=== PATIENT | female | born 1950 | race Caucasian/White ===

== ENCOUNTER → 2017-02-24 | Outpatient (CLI) | payer MEDICARE, BC ==
[2014-03-15 17:02] VITALS: BP 176/80
[~2017-02-24] MED LIST: ALLO300T PO; ALPR0.254 PO; AMIT25TA PO; AMIT50TA PO; ASPI-630 PO; ASPI325T8 PO; CALC-102 PO; CYCL5TAB PO; DOCU100C28 PO; FOLI1TAB16 PO; FURO-68 PO; HYDR-2758 PO; HYDR4TAB PO; LEXAPRO10 MG PO; MAGN400T3 PO; MULT-208 PO; OXYB5TAB7 PO; POTA20TA12 PO; THIA100T8 PO
--- NOTE | 2017-02-24 15:16 | RAD ---
Renal ultrasound 02/24/2017 Indication: Persistent proteinuria Comparison study: None Findings: Ultrasound evaluation of the kidneys was performed. Static images are submitted to PACS. The right kidney is poorly visualized measuring approximately between 9 and 10 cm in length. There is a small cyst in the superior pole the right kidney measuring 1 cm in diameter. No hydronephrosis or definitive nephrolithiasis is identified on the right. Diffuse atherosclerotic vascular irregularity seen throughout the visualized aorta without evidence of aneurysmal dilatation. The bladder is predominantly decompressed. Left kidney is also somewhat poorly visualized measuring approximately 9 cm in length. No hydronephrosis or definitive nephrolithiasis is seen left. No focal renal lesion is seen on the left. Both kidneys demonstrate mild diffusely increased renal echogenicity and cortical thinning. Impression: 1. 1 cm cyst, superior pole right kidney 2. Increased renal echogenicity and mild renal cortical thinning. The appearance is nonspecific, but most commonly reflects chronic medical renal disease
[2017-02-24 15:53] LABS: ALBUMIN 3.2 g/dL (3.4-5.0); CALCIUM 9.2 mg/dL (8.5-10.1); CREATININE 1.2 mg/dL (0.6-1.0); GFR 44.7
[2017-02-24 16:01] LABS: BASO # 0.1 x10^3/uL (0.0-0.2); BASO % 2 % (0-3); EOS # 0.1 x10^3/uL (0.0-0.7); EOS % 1 % (0-3); HEMATOCRIT 35.5 % (36.0-47.0); LYMPH # 1.9 x10^3/uL (1.0-4.8); LYMPH % 37 % (24-48); MEAN CORPUSCULAR HEMOGLOBIN 34 pg (25-35); MEAN CORPUSCULAR HGB CONC 34 g/dL (31-37); MEAN CORPUSCULAR VOLUME 102 fL (79-100); MONO # 0.3 x10^3/uL (0.0-1.1); MONO % 5 % (0-9); NEUT # 2.8 x10^3uL (1.8-7.7); NEUT % 55 % (31-73); PLATELET COUNT 150 x10^3/uL (140-400); RED CELL DISTRIBUTION WIDTH 14.8 % (11.5-14.5); WHITE BLOOD COUNT 5.1 x10^3/uL (4.0-11.0)
[2017-02-25 05:10] LABS: CREATININE PTH 1.24 mg/dL (0.57-1.00); PTH INTACT 95 pg/mL (15-65)
== END | disposition home or self-care (01) ==
LOC: US 14:04
PROVIDERS: ATTEND Internal Medicine Nephrology
DX: I12.9 Hypertensive chronic kidney disease with stage 1 through stage 4 chronic kidney disease, or unspecified chronic kidney disease (principal); N18.3 Chronic kidney disease, stage 3 (moderate); R80.1 Persistent proteinuria, unspecified; N28.1 Cyst of kidney, acquired; N32.89 Other specified disorders of bladder
CPT/HCPCS: 36415; 76770; 80069; 83970; 85025

== ENCOUNTER 2017-07-07 15:00 | Inpatient (IN) | payer MEDICARE, BC ==
[~2017-07-07] VITALS: Ht 154.9 cm; Wt 53.8 kg
--- NOTE | 2017-07-07 15:17 | PHYS DOC ---
Past History Past Medical History: Alcoholism, Anxiety, Depression, Seizure Past Surgical History: Hysterectomy Smoking: Non-smoker Alcohol Use: None Drug Use: None Adult General Chief Complaint Chief Complaint: SEIZURE HPI HPI 66-year-old female patient brought in by EMS because of seizures. Patient states she has seizure at age of 12 and was on Dilantin for 2 years and patient was stopped at age of 14. Patient states he was at auto shop today and felt dizzy and storehouse clerk helped her to sit down. Patient does not remember anything more and witness states she had 3 episodes of grand mal seizure that last about 1 minute and was one or 2 minutes apart without loss of urine and bowel or injury. Patient has history of alcoholism but did not take any narcotics since May 10 denies using drugs and taking Ultram. Review of Systems Review of Systems Constitutional: Denies fever or chills [] Eyes: Denies change in visual acuity, redness, or eye pain [] HENT: Denies nasal congestion or sore throat [] Respiratory: Denies cough or shortness of breath [] Cardiovascular: No additional information not addressed in HPI [] GI: Denies abdominal pain, nausea, vomiting, bloody stools or diarrhea [] : Denies dysuria or hematuria [] Musculoskeletal: Denies back pain or joint pain [] Integument: Denies rash or skin lesions [] Neurologic: Denies headache, focal weakness or sensory changes [] Endocrine: Denies polyuria or polydipsia [] All other systems were reviewed and found to be within normal limits, except as documented in this note. Allergies Allergies Allergies Coded Allergies Type Severity Reaction Last Updated Verified No Known Drug Allergies 12/11/13 No Physical Exam Physical Exam Constitutional: Well developed, well nourished, no acute distress, non-toxic appearance. [] HENT: Normocephalic, atraumatic, bilateral external ears normal, oropharynx moist, no oral exudates, nose normal. [] Eyes: PERRLA, EOMI, conjunctiva normal, no discharge. [] Neck: Normal range of motion, no tenderness, supple, no stridor. [] Cardiovascular:Heart rate regular rhythm, no murmur [] Lungs & Thorax: Bilateral breath sounds clear to auscultation [] Abdomen: Bowel sounds normal, soft, no tenderness, no masses, no pulsatile masses. [] Skin: Warm, dry, no erythema, no rash. [] Back: No tenderness, no CVA tenderness. [] Extremities: No tenderness, no cyanosis, no clubbing, ROM intact, no edema. [] Neurologic: Alert and oriented X 3, normal motor function, normal sensory function, no focal deficits noted. [] Psychologic: Affect normal, judgement normal, mood normal. [] EKG EKG [EKG at 1540 showed normal sinus rhythm at rate of 71, no acute distress and T wave abnormality] Radiology/Procedures Radiology/Procedures [] [place] [address] IMAGING REPORT Signed PATIENT: DIAN RAMOS ACCOUNT: [id number] : 1950 LOCATION: ER AGE: 66 SEX: F EXAM STATUS: REG ER ORD. PHYSICIAN: TRACY LIMON MD REASON: seizure PROCEDURE: CT HEAD WO CONTRAST CT head without contrast History: Seizure. Comparison: 03/15/2014. Procedure: Axial images are obtained of the head from the skull base through the vertex without IV contrast. Findings: Mild age-related cerebral atrophic changes. Mild bilateral periventricular white matter hypodensities likely chronic small vessel ischemic disease. The ventricles and sulci are normal for the patient's age. No mass-effect, intracranial mass, midline shift, hemorrhage or obvious acute infarction is identified. Basilar cisterns are patent. Bone windows demonstrate no significant calvarial abnormality. The visualized paranasal sinuses appear clear. Impression: 1. No acute intracranial process. PQRS Compliance Statement: One or more of the following individualized dose reduction techniques were utilized for this examination: 1. Automated exposure control 2. Adjustment of the mA and/or kV according to patient size 3. Use of iterative reconstruction technique DICTATED AND SIGNED BY: MILAGROS DELACRUZ MD DATE: 07/07/17 1548 CC: CHARLES PATE MD; TRACY LIMON MD ~ Course & Med Decision Making Course & Med Decision Making Pertinent Labs and Imaging studies reviewed. (See chart for details) Admission of patient in ER showed 66-year-old female patient with remote history of seizures with 2 episodes of seizure today. Patient had unremarkable physical exam and labs and CT head except for increasing chronic renal insufficiency and anemia. Dr. Hernandez was consulted at 1625 and recommended to admit patient for observation of status epilepticus. Plan to start Keppra loading dose. Dr. Gibbs informed at 1640 and agreed with plan of care and admission. UA and UDS is pending. Dragon Disclaimer Dragon Disclaimer This electronic medical record was generated, in whole or in part, using a voice recognition dictation system. Departure Departure: Impression: Primary Impression: Status epilepticus Additional Impressions: Anemia Renal insufficiency Dehydration Disposition: 09 ADMITTED INPATIENT (At 1649) Admitting Physician: Jaki Dodge Condition: IMPROVED Referrals: CHARLES PATE MD (PCP) Problem Qualifiers TRACY LIMON MD Jul 07, 2017 15:17
[2017-07-07 15:52] LABS: BASO % 1 % (0-3); EOS # 0.2 x10^3/uL (0.0-0.7); EOS % 4 % (0-3); HEMATOCRIT 30.1 % (36.0-47.0); HEMOGLOBIN 10.3 g/dL (12.0-15.5); LYMPH # 1.8 x10^3/uL (1.0-4.8); LYMPH % 32 % (24-48); MEAN CORPUSCULAR HEMOGLOBIN 34 pg (25-35); MEAN CORPUSCULAR HGB CONC 34 g/dL (31-37); MEAN CORPUSCULAR VOLUME 100 fL (79-100); MONO # 0.4 x10^3/uL (0.0-1.1); MONO % 6 % (0-9); NEUT # 3.2 x10^3uL (1.8-7.7); NEUT % 57 % (31-73); PLATELET COUNT 207 x10^3/uL (140-400); RED BLOOD COUNT 3.01 x10^6/uL (3.50-5.40); RED CELL DISTRIBUTION WIDTH 13.8 % (11.5-14.5); WHITE BLOOD COUNT 5.7 x10^3/uL (4.0-11.0)
--- NOTE | 2017-07-07 15:52 | RAD ---
CT head without contrast History: Seizure. Comparison: 03/15/2014. Procedure: Axial images are obtained of the head from the skull base through the vertex without IV contrast. Findings: Mild age-related cerebral atrophic changes. Mild bilateral periventricular white matter hypodensities likely chronic small vessel ischemic disease. The ventricles and sulci are normal for the patient's age. No mass-effect, intracranial mass, midline shift, hemorrhage or obvious acute infarction is identified. Basilar cisterns are patent. Bone windows demonstrate no significant calvarial abnormality. The visualized paranasal sinuses appear clear. Impression: 1. No acute intracranial process. PQRS Compliance Statement: One or more of the following individualized dose reduction techniques were utilized for this examination: 1. Automated exposure control 2. Adjustment of the mA and/or kV according to patient size 3. Use of iterative reconstruction technique
[2017-07-07 16:05] LABS: ALBUMIN 3.3 g/dL (3.4-5.0); ALBUMIN/GLOBULIN RATIO 0.9 (1.0-1.7); CALCIUM 9.2 mg/dL (8.5-10.1); GFR 24.8; POTASSIUM 4.4 mmol/L (3.5-5.1); TOTAL BILIRUBIN 0.2 mg/dL (0.2-1.0); TOTAL PROTEIN 6.8 g/dL (6.4-8.2)
--- NOTE | 2017-07-07 16:49 | EKG ---
[address] [address] Test Date: 2017-07-07 Test Time: 15:14:16 Pat Name: DIAN RAMOS Department: Room: Gender: F Vehicle And Equipment [employer]er: : 1950 Requested By: TRACY LIMON Order Number: [id number] Reading MD: Julian Hurtado Measurements Intervals [place] Rate: 71 P: 31 SD: 150 QRS: 13 QRSD: 74 T: 41 QT: 422 QTc: 464 Interpretive Statements SINUS RHYTHM NORMAL ECG Electronically Signed On 07-22-2017 17:47:05 CDT by Julian Hurtado
[2017-07-07 16:57] LABS: BARBITURATES NEG (NEG); BENZODIAZEPINES NEG (NEG); CANNABINOIDS POS (NEG); COCAINE NEG (NEG); METHADONE NEG (NEG); OPIATES NEG (NEG); PHENCYCLIDINE NEG (NEG)
[2017-07-07 16:58] LABS: AMPHETAMINE/METHAMPHETAMINE NEG (NEG)
[2017-07-07] MEDS ORDERED: IV NORMAL SALINE 1,000ML 1,000 ML IV ONE (17:00)
[2017-07-07 17:51] LABS: BILIRUBIN,URINE NEG (NEG); CLARITY,URINE HAZY; COLOR,URINE YELLOW; GLUCOSE,URINE NEG (NEG); NITRITE,URINE POS (NEG); UROBILINOGEN,URINE 0.2 mg/dL (0.2 mg/dL)
[2017-07-07 17:52] LABS: BACTERIA,URINE MOD /HPF (0-FEW)
[2017-07-07 19:01] VITALS: BP 169/83
[2017-07-07] MEDS ORDERED: CHOL4POW11 PO (20:43)
[2017-07-07] MEDS ORDERED: LOSA25TA4 PO (20:43)
[2017-07-07] MEDS ORDERED: OLAN2.5T3 PO (20:43)
[2017-07-07] MEDS ORDERED: FURO20TA3 PO (20:43)
[2017-07-07] MEDS ORDERED: CYCL-331 PO (20:43)
[2017-07-07] MEDS ORDERED: OXYB15TA4 PO (20:43)
[2017-07-07] MEDS ORDERED: OLANZapine 2.5 MG TABLET PO PRN (20:45)
[2017-07-07] MEDS ORDERED: CYCLOBENZAPRINE 10 MG TABLET. PO PRN (20:45)
[2017-07-07] MEDS ORDERED: cefTRIAXone IV Push 1 GM VIAL. IVP SCH (21:00)
[2017-07-07] MEDS: levETIRAcetam 500 MG TABLET PO SCH (22:18)
[2017-07-07] MEDS: LACTOBACILLUS RHAMNOSUS GG 1 CAPSULE. PO SCH (22:18)
[2017-07-07] MEDS: OXYBUTYNIN CHLORIDE 5 MG TABLET PO SCH (22:18)
[2017-07-07] MEDS: IV NORMAL SALINE 1,000ML 1,000 ML IV SCH (22:25)
[2017-07-07 22:27] VITALS: BP 113/54
[2017-07-08] MEDS: IV NORMAL SALINE 1,000ML 1,000 ML IV SCH ×2 (04:45→12:45)
[2017-07-08 05:29] VITALS: BP 142/78
[2017-07-08] MEDS: levETIRAcetam 500 MG TABLET PO SCH (08:13)
[2017-07-08] MEDS: OXYBUTYNIN CHLORIDE 5 MG TABLET PO SCH (08:14)
[2017-07-08] MEDS: LACTOBACILLUS RHAMNOSUS GG 1 CAPSULE. PO SCH (08:14)
[2017-07-08] MEDS ORDERED: CHOLESTYRAMINE/ASPARTAME 4 GM PACKET PO SCH (09:00)
[2017-07-08] MEDS ORDERED: LOSARTAN 25 MG TABLET. PO SCH (09:00)
[2017-07-08 09:29] LABS: ALBUMIN 3.1 g/dL (3.4-5.0); CREATININE 1.5 mg/dL (0.6-1.0); GFR 34.5; MAGNESIUM 1.9 mg/dL (1.8-2.4); POTASSIUM 4.5 mmol/L (3.5-5.1); TOTAL BILIRUBIN 0.2 mg/dL (0.2-1.0); TOTAL PROTEIN 6.3 g/dL (6.4-8.2)
[2017-07-08 10:03] VITALS: BP 158/83
[2017-07-08 14:26] VITALS: BP 130/64
[2017-07-08] MEDS ORDERED: LEVE500T56 PO (15:08)
--- NOTE | 2017-07-08 16:49 | HP ---
ADMIT DATE: 07/07/2017 HISTORY OF PRESENT ILLNESS: The patient is a 66-year-old female patient who basically was brought by emergency medical service because of seizures. The patient stated that she had a seizure at age of 12, was on Dilantin for 2 years and the patient was stopped at the age of 14, has never had any seizures since then. She stated that she was in OT shop today, felt dizzy and the in store marketing representative helped her to sit down. Apparently, the patient does not remember anything and a witness stated that she has 3 episodes of grand-mal seizures, each one lasted about 1 minute and 1 or 2 minutes apart without loss of urine, bowel or injury. The patient has history of alcoholism, but did not take any narcotics or alcohol since May. Denied using any drugs or taking Ultram, she was basically investigated in the Emergency Room and she was noted to be dehydrated with elevated BUN and creatinine and her urinalysis was unremarkable; however, her toxic screen was positive for cannabis. Her imaging studies showed that the CT scan was mild age-related cerebral atrophic changes with mild bilateral periventricular white matter hypodensities, likely chronic small vessel ischemic changes. The ventricle sulci are normal for her age. No mass effect, intracranial mass, midline shift, hemorrhage or obvious acute infarction identified. Basilar cisterns are patent. Bone windows demonstrate no significant calvarial abnormality. Visualized paranasal sinuses appear clear. The patient was admitted and upon consulting Dr. Hernandez, she was started on Keppra 1000 mg loading dose and continued on Keppra 500 mg twice a day and was continued on all her other medications. PAST MEDICAL HISTORY: Significant for hypertension, chronic kidney disease stage 3 and questionable hypothyroidism. PAST SURGICAL HISTORY: Significant for total abdominal hysterectomy, bilateral salpingo-oophorectomy. ALLERGIES: CODEINE. MEDICATIONS: She is currently on following medications: She is on cholestyramine 4 grams daily, Flexeril 10 mg 3 times a day, furosemide 20 mg twice a day, losartan potassium 25 mg once a day, olanzapine 2.5 mg at bedtime and Ditropan-XL ____ mg p.o. b.i.d. FAMILY HISTORY: She has 2 brothers, one older and has osteoarthritis of his hip and one younger brother is healthy. Her sister has bilateral hip replacement. Her father at age of 76 because of congestive heart failure, diabetes and her mother at age of 81 because of end-stage renal disease and was on dialysis, she had multiple myeloma as underlying condition. SOCIAL HISTORY: She was and she has no kids. She smokes marijuana almost daily basis. She used to drink alcohol heavily, quit in May. 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 REVIEW OF SYSTEMS: The patient denied any blurring of vision, cataract, glaucoma or macular degeneration. Denied any earache, tinnitus or sensorineural deafness. Denied any nosebleeds, stuffy nose or postnasal drip. Denied any sore throat, sore tongue, toothache, hoarseness of voice or difficulty swallowing. Denied any nausea, vomiting, diarrhea or constipation, any hematemesis, melena or hematochezia. Denied dysuria, frequency or hematuria. Denied chest pain, shortness of breath, orthopnea, paroxysmal nocturnal dyspnea. PHYSICAL EXAMINATION: GENERAL: On arrival to the Emergency Room, she looked well and was clearly in no apparent respiratory distress, pale, but no jaundice, cyanosis, or thyromegaly. No jugular venous distension. No limb edema. VITAL SIGNS: Her heart rate was 69, blood pressure 125/54, temperature was 97.9, respiratory rate was 18 and oxygen saturation was 99%. HEENT: Showed normocephalic, atraumatic. NECK: Supple. HEART: Showed normal first and second heart sounds. No gallop, rub or murmur. CHEST: Clear to auscultation. No crepitation or rhonchi. ABDOMEN: Distended, soft, nontender. No guarding or rigidity. No organomegaly. All hernial orifices intact. Bowel sounds normal. NEUROLOGIC: She was alert, oriented x 3, normal motor and sensory function. No focal deficit. Her affect was normal with normal judgment. Mood was normal. LABORATORY DATA: While in the Emergency Room, she has had lab work done, which showed that her white cell count was 5700, hemoglobin 10, hematocrit 30, MCV 100, and platelet count of 207,000. Her chemistry showed a serum sodium 143, potassium 4.4, chloride 107, bicarbonate 28, anion gap of 8, BUN 47, creatinine 2, estimated GFR was 25 mL per minute. Her glucose was 119, calcium 9.2. Total bilirubin, AST, ALT, alkaline phosphatase were normal. Total protein 6.8, albumin 3.3. Urinalysis was unremarkable. Toxic screen was positive for cannabinoids and her CT scan of the head showed no acute intracranial process. The patient was seen by Dr. Hernandez and was given a loading dose of Keppra and was continued on Keppra 500 mg twice a day. Continue all her other medications. We will obviously await evaluation by Dr. Hernandez and repeat her labs tomorrow and decide on further management accordingly. ESPERANZA OBREGON MD DR: RANJANA/jesika JOB#: [id number] / [id number]
--- NOTE | 2017-07-08 21:53 | DS ---
DATE OF DISCHARGE: 07/08/2017 HISTORY OF PRESENT ILLNESS: The patient is a 66-year-old female patient, who came in with 3 episodes of what has been described as tonic-clonic seizures, although each one lasted about 1 minute and were 1-2 minutes apart without any urine or bowel incontinence, no tongue biting. The patient apparently quit drinking alcohol in 05/2017 and does not use any narcotics since May and denied using any drugs or taking Ultram. She does smoke a joint of marijuana almost daily, according to her. In any case, she was simply extensively investigated. She was found to be mildly hydrated. Apparently, she is known to have stage 3 chronic kidney disease. She has also anemia and dehydration. She was loaded with Keppra and was given Keppra 500 mg twice a day as she remained stable a decision was made to discharge her home to follow with Dr. Hernandez as an outpatient. We did contact her primary care physician's office and apparently her most recent creatinine was 1.5 on 07/05/2017. PHYSICAL EXAMINATION: GENERAL: When I examined her today, she looked well and was clearly in no apparent respiratory distress, pale, but no jaundice, cyanosis, or thyromegaly. No jugular venous distension. No limb edema. VITAL SIGNS: Her heart rate was 68, blood pressure was 169/83, temperature was 98.1, respiratory rate was 20, and oxygen saturation was 98%. HEAD, EYES, EARS, NOSE AND THROAT: Normocephalic, atraumatic. NECK: Was supple. HEART: Showed normal first and second heart sounds. No gallop, rub or murmur. CHEST: Clear to auscultation. No crepitation or rhonchi. ABDOMEN: Distended, soft, nontender. No guarding or rigidity. No organomegaly. Hernial orifice is intact. Bowel sounds normal. NEUROLOGIC: She is awake, alert, responding appropriately. Cranial nerves are intact. EXTREMITIES: She moves extremities without difficulty. She ambulates without assistance or assistive devices. Her intake over the last 24 hours was 2800, no output was recorded. LABORATORY DATA: Her lab work this morning showed a serum sodium 143, potassium 4.5, chloride 110, bicarbonate 23, anion gap of 10, BUN 43, creatinine 1.5, estimated GFR was 34 mL per minute. Her glucose was 110, calcium 9, magnesium was 1.9. Total bilirubin, AST, ALT, alkaline phosphatase were normal. Her total protein was 6.3, albumin 3.1. DISCHARGE MEDICATIONS: The patient will be discharged home to continue on Keppra 500 mg twice a day, cholestyramine 4 grams daily for irritable bowel syndrome, Flexeril 10 mg 3 times a day for muscle spasm, furosemide 20 mg twice a day, losartan potassium 25 mg daily, and olanzapine for Zyprexa 2.5 mg at bedtime as needed for insomnia, and oxybutynin chloride for Ditropan for overactive bladder 50 mg twice a day. FINAL DISCHARGE DIAGNOSES: 1. A new onset seizure. 2. Chronic kidney disease. 3. Anemia. 4. Dehydration. 5. Hypertension. 6. Insomnia. 7. Overactive bladder. ESPERANZA OBREGON MD DR: RANJANA/jesika JOB#: [id number] / [id number]
--- NOTE | 2017-07-08 23:45 | CONS ---
DATE OF CONSULTATION: 07/08/2017 NEUROLOGIC CONSULTATION CHIEF COMPLAINT: Breakthrough new onset of seizure. HISTORY OF PRESENT ILLNESS: This is a 66-year-old female who was admitted through Emergency Room last night after she presented with possible 3 episodes described as seizure-like activities. The patient stated she had first seizure at age of 12 of unknown etiology. She was placed on Dilantin for 2 years and she has not had any seizures since until yesterday when she was in auto shop. She felt a sudden onset of dizzy, so she had to sit down and then she started having 3 seizure-like activity, each one lasted 1-2 minutes approximately. 911 was activated and they transferred the patient to [facility] Emergency Room. The patient did not recall the event and she did not have any other symptoms prior to the seizure. On arrival to the Emergency Room, the patient was alert and oriented, but she did not recall those seizures. She did not have any bowel or bladder incontinence. The patient denies any other medical or neurological complaints. She denies any recent head injuries or fall. She quit drinking a few months ago. The patient used to be an alcoholic. However, she has been smoking marijuana every day for many years. PAST MEDICAL HISTORY: Significant for alcohol abuse, she does have some intermittent urinary incontinence, history of hypertension, congestive heart failure, urinary tract infections, gout, arthritis, sleep difficulties, and depression. PAST SURGICAL HISTORY: Significant for hysterectomy, right foot surgery x 2. SOCIAL HISTORY: The patient lives independently. She drives. She denies smoking cigarettes, but she smokes marijuana on a daily basis and she quit alcohol several months ago. FAMILY HISTORY: Her mother had renal failure. Her father had myocardial infarction and diabetes mellitus. CURRENT HOME MEDICATIONS: Cholestyramine 4 mg daily, losartan 25 mg daily, oxybutynin 5 mg t.i.d., olanzapine, Zyprexa 2.5 mg at bedtime p.r.n., and Flexeril 10 mg t.i.d. ALLERGIES: CODEINE. REVIEW OF SYSTEMS: Ten-point review of systems was performed as mentioned above in history of present illness. PHYSICAL EXAMINATION: GENERAL: Well-developed, well-nourished white female, not in acute distress. VITAL SIGNS: Blood pressure 142/70, respiratory rate 20, pulse is 76 and regular, temperature 97.9, oxygen saturation is 97% on room air. HEENT: Normocephalic, atraumatic, otherwise unremarkable. NECK: Supple. Negative for carotid bruit, lymphadenopathy, or thyromegaly. LUNGS: Clear to A and P. CARDIOVASCULAR: Regular rate rhythm. Normal S1, S2. There is no S3, S4, murmurs. ABDOMEN: Soft. Bowel sounds positive. EXTREMITIES: Negative for cyanosis, clubbing, pitting edema. NEUROLOGICAL EXAMINATION: Mental Status: The patient is alert and oriented x 3. Speech is fluent. There is no language dysfunction. Memory is intact. Judgment and abstracting thinking are normal. The patient denies hallucination or delusion. Cranial nerves: Visual valero are full. The pupils are reactive to light and accommodation. The extraocular movements are intact. There is no nystagmus. There is no facial motor or sensory deficit. Deep tendon reflexes were symmetric and active without pathology responses. Gait and coordinations are normal. LABORATORY DATA: CBC revealed blood cells of 5700, hemoglobin 10.3, hematocrit 30.1, platelet count 207,000. Chemistry revealed sodium of 143, potassium 4.4, chloride 107, CO2 28, BUN 47, creatinine 2, and glucose 119. Calcium is 9.2. Liver enzymes are normal. Troponin level less than 0.017. Urinalysis, positive large urine leukocyte esterase and positive for nitrite, moderate bacteria. Urine drug screen is positive for marijuana. A head CT scan revealed no acute intracranial process. IMPRESSION: 1. Breakthrough seizure. The patient was loaded with Keppra intravenously and continued on maintenance dose of 500 mg twice daily. The patient has not had any recurrent seizure since. 2. Multiple medical problems include renal disease, hypertension, depression and sleep disorders, anemia of chronic type, urinary tract infections, chronic marijuana use. RECOMMENDATIONS: 1. Continue with current managements for urinary tract infections and hydration. 2. We will check CPK. 3. We will arrange for continue with Keppra 500 mg twice daily. 4. We will arrange for an EEG as outpatient. 5. No driving until the EEG is done. M Live MCGARRY MD DR: LARRY/jesika JOB#: [id number] / [id number]
== END 2017-07-08 15:30 | disposition home or self-care (01) | DRG 100 ==
LOC: ER 15:00 → 1 SOUTH 16:45 → OBSVTOIN 18:46
PROVIDERS: ADMIT Family Medicine; ATTEND Family Medicine
DX: G40.901 Epilepsy, unspecified, not intractable, with status epilepticus (principal); N17.0 Acute kidney failure with tubular necrosis; I13.0 Hypertensive heart and chronic kidney disease with heart failure and stage 1 through stage 4 chronic kidney disease, or unspecified chronic kidney disease; N39.0 Urinary tract infection, site not specified; I50.9 Heart failure, unspecified; N18.3 Chronic kidney disease, stage 3 (moderate); D64.9 Anemia, unspecified; E86.0 Dehydration; F32.9 Major depressive disorder, single episode, unspecified; F41.9 Anxiety disorder, unspecified; F10.21 Alcohol dependence, in remission; F12.90 Cannabis use, unspecified, uncomplicated; M19.90 Unspecified osteoarthritis, unspecified site; G47.00 Insomnia, unspecified; N32.81 Overactive bladder; M10.9 Gout, unspecified; Z90.710 Acquired absence of both cervix and uterus; Z90.722 Acquired absence of ovaries, bilateral; Z90.79 Acquired absence of other genital organ(s); Z88.5 Allergy status to narcotic agent; Z79.899 Other long term (current) drug therapy; Z82.61 Family history of arthritis; Z83.3 Family history of diabetes mellitus; Z82.49 Family history of ischemic heart disease and other diseases of the circulatory system; Z80.7 Family history of other malignant neoplasms of lymphoid, hematopoietic and related tissues
CPT/HCPCS: 36415; 70450; 80053; 80307; 81001; 82550; 83735; 84484; 85025; 87086; 87186; 93005; 96361; 96374; G0378; G0379; J0696; J1953; 99285-25; G0479; J7030

== ENCOUNTER 2017-09-17 10:35 | Emergency (ER) | payer MEDICARE, BC ==
[~2017-09-17] VITALS: Ht 154.9 cm; Wt 55.8 kg
[~2017-09-17 10:35] MED LIST changes: +CHOL4POW11 PO; +CYCL-331 PO; +FURO20TA3 PO; +LEVE500T56 PO; +LOSA25TA4 PO; +OLAN2.5T3 PO; +OXYB15TA4 PO
--- NOTE | 2017-09-17 11:06 | RAD ---
EXAM: Right foot and ankle, 3 views. HISTORY: Fall. Swelling and bruising. COMPARISON: None. FINDINGS: Frontal, lateral and oblique views of the right foot and ankle are obtained. There is evidence of prior right hallux valgus and bunionectomy surgery, with associated fixation screw within the distal first metatarsal. There is a tiny plantar spur. There is a tiny ossicle along the lateral hindfoot and a single projection, possibly due to a developmental ossicle or tiny avulsion fracture fragment. There is diffuse ankle and foot soft tissue swelling. The ankle mortise is intact. IMPRESSION: 1. Diffuse ankle and foot soft tissue swelling. 2. Evidence of prior right hallux valgus and bunionectomy surgery. 3. Tiny plantar spur. 4. Tiny ossicle along the lateral hindfoot and a single projection, possibly developmental or tiny avulsion fracture fragment of uncertain chronicity. Correlate for point tenderness in this location. Electronically signed by: Araceli Cid MD (09/17/2017 11:03 AM) [id number]
--- NOTE | 2017-09-17 11:33 | PHYS DOC ---
Past History Past Medical History: Alcoholism, Depression, Hypertension, Hypothyroid, Migraines, Renal Disease, Seizure Past Surgical History: Hysterectomy Smoking: Non-smoker Alcohol Use: None Drug Use: None Adult General Chief Complaint Chief Complaint: MECHANICAL FALL HPI HPI 66-year-old female presents with right ankle pain. The patient was standing up from her chair and tripped over her own feet. She rolled her right ankle inward and fell onto the floor. This occurred 2 days ago. Since that time, the patient has had significant increase in bruising and swelling of the right foot and right ankle. He denies any other injuries or areas of pain. She presents today she is concerned that the foot may be broken. She has been able to walk on her leg, but it is painful. The patient was recently started on baby aspirin daily. Patient denies fever, chills headache, fevers, shortness of breath, chest pain. Review of Systems Review of Systems Constitutional: Denies fever or chills [] Eyes: Denies change in visual acuity, redness, or eye pain [] HENT: Denies nasal congestion or sore throat [] Respiratory: Denies cough or shortness of breath [] Cardiovascular: No additional information not addressed in HPI [] GI: Denies abdominal pain, nausea, vomiting, bloody stools or diarrhea [] : Denies dysuria or hematuria [] Musculoskeletal: Denies back pain or joint pain [] Integument: Denies rash or skin lesions [] Neurologic: Denies headache, focal weakness or sensory changes [] Endocrine: Denies polyuria or polydipsia [] All other systems were reviewed and found to be within normal limits, except as documented in this note. Allergies Allergies Allergies Coded Allergies Type Severity Reaction Last Updated Verified codeine Allergy Unknown 09/17/17 Yes Physical Exam Physical Exam Constitutional: Well developed, well nourished, no acute distress, non-toxic appearance. [] HENT: Normocephalic, atraumatic, bilateral external ears normal, oropharynx moist, no oral exudates, nose normal. [] Eyes: PERRLA, EOMI, conjunctiva normal, no discharge. [] Neck: Normal range of motion, no tenderness, supple, no stridor. [] Cardiovascular:Heart rate regular rhythm, no murmur [] Lungs & Thorax: Bilateral breath sounds clear to auscultation [] Abdomen: Bowel sounds normal, soft, no tenderness, no masses, no pulsatile masses. [] Skin: Warm, dry, no erythema, no rash. [] Back: No tenderness, no CVA tenderness. [] Extremities: No tenderness, no cyanosis, no clubbing, ROM intact, no edema. [] Neurologic: Alert and oriented X 3, normal motor function, normal sensory function, no focal deficits noted. [] Psychologic: Affect normal, judgement normal, mood normal. [] Current Patient Data Vital Signs Vital Signs Date Time Temp Pulse Resp B/P (MAP) Pulse Ox O2 Delivery O2 Flow Rate FiO2 09/17/17 10:49 98.1 56 16 97 Room Air EKG EKG [] Radiology/Procedures Radiology/Procedures []EXAM: Right foot and ankle, 3 views. HISTORY: Fall. Swelling and bruising. COMPARISON: None. FINDINGS: Frontal, lateral and oblique views of the right foot and ankle are obtained. There is evidence of prior right hallux valgus and bunionectomy surgery, with associated fixation screw within the distal first metatarsal. There is a tiny plantar spur. There is a tiny ossicle along the lateral hindfoot and a single projection, possibly due to a developmental ossicle or tiny avulsion fracture fragment. There is diffuse ankle and foot soft tissue swelling. The ankle mortise is intact. IMPRESSION: 1. Diffuse ankle and foot soft tissue swelling. 2. Evidence of prior right hallux valgus and bunionectomy surgery. 3. Tiny plantar spur. 4. Tiny ossicle along the lateral hindfoot and a single projection, possibly developmental or tiny avulsion fracture fragment of uncertain chronicity. Correlate for point tenderness in this location. Electronically signed by: Araceli Cid MD (09/17/2017 11:03 AM) [id number] Course & Med Decision Making Course & Med Decision Making Pertinent Labs and Imaging studies reviewed. (See chart for details) Patient's x-ray does not show definitive fracture. Please see official read in this note. By my review of the imaging, I could not see a fracture. The mentioned ossification appears to be old. I believe the patient has a moderate to severe sprain of the anterior talofibular ligament. We will wrap it with an Leif wrap to help with swelling. We will also provide an Aircast splint. She will follow up with her PCP for further management. [] Dragon Disclaimer Dragon Disclaimer This electronic medical record was generated, in whole or in part, using a voice recognition dictation system. Departure Departure: Disposition: 01 HOME, SELF-CARE Condition: STABLE Referrals: ARACELI PATE MD (PCP) RICHARD MAGANA DO September 17, 2017 11:33
== END 2017-09-17 12:05 | disposition home or self-care (01) ==
LOC: ER 10:35
DX: S93.491A Sprain of other ligament of right ankle, initial encounter (principal); E03.9 Hypothyroidism, unspecified; F10.20 Alcohol dependence, uncomplicated; F32.9 Major depressive disorder, single episode, unspecified; I10 Essential (primary) hypertension; M20.11 Hallux valgus (acquired), right foot; Z79.82 Long term (current) use of aspirin; Z88.5 Allergy status to narcotic agent; W01.0XXA Fall on same level from slipping, tripping and stumbling without subsequent striking against object, initial encounter; Y93.89 Activity, other specified; Y92.89 Other specified places as the place of occurrence of the external cause; Y99.8 Other external cause status
CPT/HCPCS: 73610; 73630; 99284; L4350

== ENCOUNTER 2017-12-08 21:39 | Emergency (ER) | payer MEDICARE, BC ==
[~2017-12-08] VITALS: Ht 154.9 cm; Wt 60.3 kg
[2017-12-08] MEDS ORDERED: LORazepam 2 MG/ML VIAL IV ONE (22:00)
[2017-12-08 22:47] VITALS: BP 196/114
[2017-12-08 23:12] LABS: BASO # 0.1 x10^3/uL (0.0-0.2); BASO % 1 % (0-3); EOS % 0 % (0-3); HEMATOCRIT 36.3 % (36.0-47.0); HEMOGLOBIN 12.6 g/dL (12.0-15.5); LYMPH # 0.9 x10^3/uL (1.0-4.8); LYMPH % 10 % (24-48); MEAN CORPUSCULAR HEMOGLOBIN 32 pg (25-35); MEAN CORPUSCULAR HGB CONC 35 g/dL (31-37); MEAN CORPUSCULAR VOLUME 92 fL (79-100); MONO # 0.4 x10^3/uL (0.0-1.1); MONO % 5 % (0-9); NEUT # 7.2 x10^3uL (1.8-7.7); NEUT % 84 % (31-73); PLATELET COUNT 228 x10^3/uL (140-400); RED BLOOD COUNT 3.97 x10^6/uL (3.50-5.40); RED CELL DISTRIBUTION WIDTH 13.8 % (11.5-14.5); WHITE BLOOD COUNT 8.5 x10^3/uL (4.0-11.0)
[2017-12-08 23:26] LABS: ALBUMIN 3.7 g/dL (3.4-5.0); ALBUMIN/GLOBULIN RATIO 1.1 (1.0-1.7); CALCIUM 9.4 mg/dL (8.5-10.1); CREATININE 1.8 mg/dL (0.6-1.0); GFR 27.9; POTASSIUM 3.9 mmol/L (3.5-5.1); TOTAL PROTEIN 7.1 g/dL (6.4-8.2)
[2017-12-09] MEDS ORDERED: ONDA4TAB10 SL (00:20)
--- NOTE | 2017-12-09 00:20 | PHYS DOC ---
Past History Past Medical History: Alcoholism, Seizure Past Surgical History: Hysterectomy Smoking: Non-smoker Alcohol Use: Sober Drug Use: Marijuana Adult General Chief Complaint Chief Complaint: ANXIETY/PANIC ATTACK HPI HPI Patient is a [67] year old [female] who brought in by EMS because of anxiety. Patient called 911 because of blood pressure of 220s and stated she was going to because of high blood pressure. Patient stated a physician. All of her anxiety medication and blood pressure medication and she had dry heaves yesterday and checked her blood pressure was 220 and became anxious and called 911. She is very anxious and unable to give history and screaming. Review of Systems Review of Systems Unable to obtain because of anxiety Current Medications Current Medications Current Medications Medications (Trade) Dose Ordered Sig/Onur Start Time Stop Time Status Last Admin Dose Admin Lorazepam (Ativan) 1 mg 1X ONCE 12/08/17 22:00 12/08/17 22:01 DC 12/08/17 22:05 1 MG Allergies Allergies Allergies Coded Allergies Type Severity Reaction Last Updated Verified codeine Allergy Unknown 09/17/17 Yes Physical Exam Physical Exam Constitutional: Agitated and anxious,, moderate distress, non-toxic appearance. [] HENT: Normocephalic, atraumatic Eyes: PERRLA, EOMI, conjunctiva normal, no discharge. [] Neck: Normal range of motion, no tenderness, supple, no stridor. [] Cardiovascular:Heart rate regular rhythm, no murmur [] Lungs & Thorax: Bilateral breath sounds clear to auscultation [] Abdomen: Bowel sounds normal, soft, no tenderness, no masses, no pulsatile masses. [] Skin: Warm, dry, no erythema, no rash. [] Back: No tenderness, no CVA tenderness. [] Extremities: No tenderness, no cyanosis, no clubbing, ROM intact, no edema. [] Neurologic: Alert and oriented X 3, normal motor function, normal sensory function, no focal deficits noted. [] Psychologic: Affect anxious, mood normal. [] Current Patient Data Vital Signs Vital Signs Date Time Temp Pulse Resp B/P (MAP) Pulse Ox O2 Delivery O2 Flow Rate FiO2 12/08/17 21:39 97.8 56 40 100 Room Air Lab Results Laboratory Tests Test 12/08/17 22:45 White Blood Count 8.5 x10^3/uL (4.0-11.0) Red Blood Count 3.97 x10^6/uL (3.50-5.40) Hemoglobin 12.6 g/dL (12.0-15.5) Hematocrit 36.3 % (36.0-47.0) Mean Corpuscular Volume 92 fL (79-100) Mean Corpuscular Hemoglobin 32 pg (25-35) Mean Corpuscular Hemoglobin Concent 35 g/dL (31-37) Red Cell Distribution Width 13.8 % (11.5-14.5) Platelet Count 228 x10^3/uL (140-400) Neutrophils (%) (Auto) 84 % (31-73) H Lymphocytes (%) (Auto) 10 % (24-48) L Monocytes (%) (Auto) 5 % (0-9) Eosinophils (%) (Auto) 0 % (0-3) Basophils (%) (Auto) 1 % (0-3) Neutrophils # (Auto) 7.2 x10^3uL (1.8-7.7) Lymphocytes # (Auto) 0.9 x10^3/uL (1.0-4.8) L Monocytes # (Auto) 0.4 x10^3/uL (0.0-1.1) Eosinophils # (Auto) 0.0 x10^3/uL (0.0-0.7) Basophils # (Auto) 0.1 x10^3/uL (0.0-0.2) Sodium Level 137 mmol/L (136-145) Potassium Level 3.9 mmol/L (3.5-5.1) Chloride Level 101 mmol/L (98-107) Carbon Dioxide Level 16 mmol/L (21-32) L Anion Gap 20 (6-14) H Blood Urea Nitrogen 31 mg/dL (7-20) H Creatinine 1.8 mg/dL (0.6-1.0) H Estimated GFR (Cockcroft-Gault) 27.9 BUN/Creatinine Ratio 17 (6-20) Glucose Level 130 mg/dL (70-99) H Calcium Level 9.4 mg/dL (8.5-10.1) Total Bilirubin 1.0 mg/dL (0.2-1.0) Aspartate Amino Transferase (AST) 18 U/L (15-37) Alanine Aminotransferase (ALT) 26 U/L (14-59) Alkaline Phosphatase 82 U/L (46-116) Total Protein 7.1 g/dL (6.4-8.2) Albumin 3.7 g/dL (3.4-5.0) Albumin/Globulin Ratio 1.1 (1.0-1.7) EKG EKG [] Radiology/Procedures Radiology/Procedures [] Course & Med Decision Making Course & Med Decision Making Pertinent Labs reviewed. (See chart for details) Evaluation of patient in ER showed 67-year-old female patient brought in by EMS because of anxiety. Patient screaming and asking for anxiety medication at arrival to ER. Patient treated with Ativan and gradually her condition improved and became, and cooperative and answering the question appropriately and denied suicidal and homicidal ideation. Patient states she doesn't have an anxiety and blood pressure medication. Patient instructed to follow up with her primary care physician regarding her medication. Blood pressure was 130s in ER. Dragon Disclaimer Dragon Disclaimer This electronic medical record was generated, in whole or in part, using a voice recognition dictation system. Departure Departure: Impression: Primary Impression: Anxiety attack Additional Impressions: Chronic renal insufficiency Uncontrolled hypertension Nausea Disposition: HOME, SELF-CARE (at 0017) Condition: IMPROVED Referrals: CHARLES PATE MD (PCP) Patient Instructions: Anxiety and Panic Attacks, Hypertension, Nausea, Adult Additional Instructions: Drink plenty of liquids Follow-up with your primary care physician in 1-2 days for blood pressure and anxiety medication Return to ER if not getting better Scripts Ondansetron (ZOFRAN ODT) 4 Mg Tab.rapdis 1 TAB SL Q8HRS, #15 TAB Prov: TRACY LIMON MD 12/09/17 Problem Qualifiers TRACY LIMON MD Dec 09, 2017 00:20
== END 2017-12-09 00:48 | disposition home or self-care (01) ==
LOC: ER 21:39
DX: F41.9 Anxiety disorder, unspecified (principal); I12.9 Hypertensive chronic kidney disease with stage 1 through stage 4 chronic kidney disease, or unspecified chronic kidney disease; N18.9 Chronic kidney disease, unspecified; R11.0 Nausea; F10.20 Alcohol dependence, uncomplicated; Z88.5 Allergy status to narcotic agent
CPT/HCPCS: 36415; 80053; 85025; 96374; 99284; G0480; J2060

== ENCOUNTER 2018-01-08 21:57 | Observation (INO) | payer MEDICARE, BC ==
[~2018-01-08] VITALS: Ht 152.4 cm; Wt 61.0 kg
[~2018-01-08 21:57] MED LIST changes: -LOSA25TA4 PO; +LOSA25TA5 PO; +ONDA4TAB10 SL
--- NOTE | 2018-01-08 22:17 | PHYS DOC ---
Past History Past Medical History: Alcoholism, Hypertension, Seizure Past Surgical History: Hysterectomy Smoking: Quit Greater Than 1 Year Alcohol Use: Sober Drug Use: Marijuana Adult General Chief Complaint Chief Complaint: ALTERED MENTAL STATUS HPI HPI 67-year-old female presents via EMS after patient reportedly had pulled over on side of road due to near syncopal episode. Patient reports she started feeling lightheaded while shopping just prior. Patient denies trauma. Reports she ended up urinating on herself . Denies alcohol use. Patient does report use of marijuana which was last used yesterday but denies any other illicit drug use. Denies headache. Denies chest pain. Patient reports she feels "weak all over ". Denies fever or chills. EMS reported patient's initial blood sugar 77 for which they gave her some dextrose. Patient appears slightly confused during evaluation and continues repeating that she had urinated on herself . Review of Systems Review of Systems Constitutional: Denies fever or chills [] Eyes: Denies change in visual acuity, redness, or eye pain [] HENT: Denies nasal congestion or sore throat [] Respiratory: Denies cough or shortness of breath [] Cardiovascular: Denies chest pain or palpitations GI: Denies abdominal pain, nausea, vomiting, or diarrhea [] : Denies dysuria or hematuria [] Musculoskeletal: Denies back pain or joint pain [] Integument: Denies rash or skin lesions [] Neurologic: Denies headache or sensory changes; reports generalized weakness; reports near syncope Complete systems were reviewed and found to be within normal limits, except as documented in this note. Allergies Allergies Allergies Coded Allergies Type Severity Reaction Last Updated Verified codeine Allergy Unknown 09/17/17 Yes Physical Exam Physical Exam Constitutional: Well developed, well nourished, no acute distress, non-toxic appearance. [] HENT: Normocephalic, atraumatic, oropharynx right] Eyes: PERRL, EOMI, conjunctiva normal, no discharge, no nystagmus Neck: Normal range of motion, no tenderness, supple, no meningeal signs Cardiovascular: Heart rate regular rhythm, no murmur [] Lungs & Thorax: Bilateral breath sounds clear to auscultation [] Abdomen: Soft, no tenderness Skin: Warm, dry, no erythema, no rash. [] Extremities: No tenderness, no cyanosis, trace edema to BLE Neurologic: Alert and oriented X 3, patient confused and repeating statements, normal sensory function. Unable to lift BUE or BLE, patient able to move fingers and toes on each limb. Initial NIHSS upon arrival would be 12 due to score of 3 to each extremity for no movement against gravity Current Patient Data Lab Results Laboratory Tests Test 01/08/18 22:05 Glucose (Fingerstick) 112 mg/dL (70-99) H EKG EKG @2210 on 01/08/18: NSR at 67bpm, NO ST elevation Radiology/Procedures Radiology/Procedures PROCEDURE: CT HEAD WO CONTRAST CT Head W/O Contrast: History: Altered mental status, weakness Comparison: July 07, 2017 Axial images were obtained without contrast. There is marked diffuse atrophy. There is no mass effect, extraaxial fluid collections or hydrocephalus. There is no focal loss of baez-white matter distinction to suggest acute ischemia, i.e. stroke. Impression: No acute findings. PQRS Compliance Statement: One or more of the following individualized dose reduction techniques were utilized for this examination: 1. Automated exposure control 2. Adjustment of the mA and/or kV according to patient size 3. Use of iterative reconstruction technique PROCEDURE: PORTABLE CHEST 1V AP chest x-ray HISTORY: Altered mental status and weakness. FINDINGS: Heart size is normal. Mediastinum is normal. No pneumothorax, pulmonary opacities or pleural effusions. Mild lobulation or eventration of the right diaphragm is noted. Thoracic spine scoliosis. IMPRESSION: No acute process. Course & Med Decision Making Course & Med Decision Making Pertinent Labs and Imaging studies reviewed. (See chart for details) Patient presents via EMS with report of near syncopal episode with associated generalized weakness. Upon arrival patient alert and oriented 3 but continually repeating herself that she "wet herself." Patient unable to lift bilateral upper extremities as well as bilateral lower extremities. Patient denies any sensation loss. Patient is able to move fingers and toes. CT head without acute process. Chest x-ray clear. Labs obtained and posted to chart. Troponin within normal limits. UA with signs of yeast cystitis. Diflucan provided. Patient with interval improvement of symptoms. NIHSS 0 prior to admission. Patient requiring admission for further evaluation and treatment. Discussed with Dr. Armstrong (hospitalist) who is in agreement with observation admission. Discussed findings and plan with patient and family, who acknowledge understanding and agreement. Dragon Disclaimer Dragon Disclaimer This electronic medical record was generated, in whole or in part, using a voice recognition dictation system. Departure Departure: Impression: Primary Impression: Near syncope Additional Impressions: Generalized weakness Yeast cystitis Disposition: ADMITTED INPATIENT Admitting Physician: Ada Armstrong Condition: IMPROVED Referrals: CHARLES PATE MD (PCP) Problem Qualifiers ANDREW ACOSTA DO Jan 08, 2018 22:17
[2018-01-08 22:32] LABS: BASO % 0 % (0-3); EOS # 0.2 x10^3/uL (0.0-0.7); EOS % 2 % (0-3); HEMATOCRIT 33.1 % (36.0-47.0); HEMOGLOBIN 11.5 g/dL (12.0-15.5); LYMPH # 2.6 x10^3/uL (1.0-4.8); LYMPH % 27 % (24-48); MEAN CORPUSCULAR HEMOGLOBIN 32 pg (25-35); MEAN CORPUSCULAR HGB CONC 35 g/dL (31-37); MEAN CORPUSCULAR VOLUME 91 fL (79-100); MONO # 0.7 x10^3/uL (0.0-1.1); MONO % 8 % (0-9); NEUT % 62 % (31-73); PLATELET COUNT 252 x10^3/uL (140-400); RED BLOOD COUNT 3.65 x10^6/uL (3.50-5.40); RED CELL DISTRIBUTION WIDTH 13.6 % (11.5-14.5); WHITE BLOOD COUNT 9.6 x10^3/uL (4.0-11.0)
[2018-01-08 22:52] LABS: BARBITURATES NEG (NEG); BENZODIAZEPINES NEG (NEG); CANNABINOIDS POS (NEG); COCAINE NEG (NEG); METHADONE NEG (NEG); OPIATES NEG (NEG); PHENCYCLIDINE NEG (NEG)
[2018-01-08 22:54] LABS: BILIRUBIN,URINE NEG (NEG); CLARITY,URINE HAZY; COLOR,URINE YELLOW; GLUCOSE,URINE NEG (NEG)
[2018-01-08 22:55] LABS: AMORPHOUS SEDIMENT,UR PRESENT /HPF; BACTERIA,URINE MANY /HPF (0-FEW); NITRITE,URINE NEG (NEG); SQUAMOUS EPITHELIAL CELL,UR OCC /LPF; UROBILINOGEN,URINE 0.2 mg/dL (0.2 mg/dL); YEAST,URINE PRESENT /HPF
--- NOTE | 2018-01-08 22:57 | RAD ---
AP chest x-ray HISTORY: Altered mental status and weakness. FINDINGS: Heart size is normal. Mediastinum is normal. No pneumothorax, pulmonary opacities or pleural effusions. Mild lobulation or eventration of the right diaphragm is noted. Thoracic spine scoliosis. IMPRESSION: No acute process. Electronically signed by: Slim Fang MD (01/08/2018 10:54 PM) [id number]
--- NOTE | 2018-01-08 22:58 | RAD ---
CT Head W/O Contrast: History: Altered mental status, weakness Comparison: July 07, 2017 Axial images were obtained without contrast. There is marked diffuse atrophy. There is no mass effect, extraaxial fluid collections or hydrocephalus. There is no focal loss of baez-white matter distinction to suggest acute ischemia, i.e. stroke. Impression: No acute findings. RS Compliance Statement: One or more of the following individualized dose reduction techniques were utilized for this examination: 1. Automated exposure control 2. Adjustment of the mA and/or kV according to patient size 3. Use of iterative reconstruction technique Electronically signed by: Mello Medina III, MD (01/08/2018 10:55 PM) [facility]
[2018-01-08] MEDS ORDERED: IV NORMAL SALINE 1,000ML 1,000 ML IV ONE (23:00)
[2018-01-08 23:03] LABS: AMPHETAMINE/METHAMPHETAMINE NEG (NEG)
[2018-01-08] MEDS ORDERED: FLUCONAZOLE 100 MG TABLET. PO ONE (23:45)
[2018-01-08 23:53] LABS: ALBUMIN 3.4 g/dL (3.4-5.0); ALBUMIN/GLOBULIN RATIO 1.1 (1.0-1.7); CREATININE 1.8 mg/dL (0.6-1.0); GFR 27.9; POTASSIUM 3.4 mmol/L (3.5-5.1); TOTAL BILIRUBIN 0.2 mg/dL (0.2-1.0); TOTAL PROTEIN 6.5 g/dL (6.4-8.2)
[2018-01-09] MEDS ORDERED: ASPIRIN 325 MG TABLET PO ONE (01:00)
[2018-01-09] MEDS ORDERED: ACETAMINOPHEN 325 MG TABLET PO PRN (01:00)
[2018-01-09] MEDS: IV NORMAL SALINE 1,000ML 1,000 ML IV SCH ×2 (01:04→11:00)
--- NOTE | 2018-01-09 01:25 | NUR ---
Pt admitted from ER to [address] [place] [address] room 105 via [facility], accompanied by EMS and nursing staff. Pt transferred from [facility] to bed x3 assist. Pt here for near syncopal episode and weakness. Admission assessment completed. VSS. Health history home medications reviewed with pt. Pt with hx of seizures, bed padded fro seizure precautions. Pt stated that she "hasn't had a seizure in almost 6 months, I take my meds religiously. Pt placed on Telemetry, NSR noted on monitor. SCDs for VTE. Pt lives at home alone. IVF started per orders. Pt refused pneumonia vaccine. Pt was given written information regarding hospital policies, unit procedures and contact persons. Valuables were checked and left at bedside.
[2018-01-09 01:49] VITALS: BP 162/80
[2018-01-09] MEDS ORDERED: LEVE500T6 PO (04:04)
[2018-01-09] MEDS ORDERED: BUSP15TA PO (04:04)
[2018-01-09] MEDS ORDERED: OLAN5TAB9 PO (04:04)
[2018-01-09] MEDS ORDERED: ALLO300T PO (04:04)
[2018-01-09] MEDS ORDERED: AMLO10TA6 PO (04:04)
[2018-01-09] MEDS ORDERED: ESCI20TA2 PO (04:04)
[2018-01-09 05:20] VITALS: BP 166/85
--- NOTE | 2018-01-09 06:30 | EKG ---
[address] [address] Test Date: 2018-01-08 Test Time: 22:19:21 Pat Name: DIAN RAMOS Department: Room: 105 A Gender: F [employer] Repairer: : [id number] Requested By: ANDREW ACOSTA Order Number: [id number] Reading MD: Reginald Reina MD Measurements Intervals [place] Rate: 67 P: 45 HI: 176 QRS: 6 QRSD: 90 T: 55 QT: 452 QTc: 481 Interpretive Statements SINUS RHYTHM PROLONGED QT Electronically Signed On 01-11-2018 12:07:27 CDT by Reginald Reina MD
--- NOTE | 2018-01-09 15:13 | NUR ---
Patient D/C home with self care. Patient is stable at time of D/C IV removed and tele monitor removed. Patient escorted out accompanied by family at time of D/C.
--- NOTE | 2018-01-09 15:27 | SSS ---
ADMIT DATE: 01/09/2018 HISTORY OF PRESENT ILLNESS: The patient is a 67-year-old female patient who was brought to the Emergency Room by emergency medical services after the patient reportedly had pulled over on the side of the road due to near syncopal episode. The patient reports that she started feeling lightheaded while shopping just prior. She denied any trauma. She reports she ended up urinating herself. Denies alcohol use. She does report use of marijuana, which was last used yesterday. She denied any other illicit drug use. Denied any headache, denied any chest pain. The patient reports that she feels weak all over. Denied any fever or chills. Emergency medical services reported patient's initial blood sugar was 77 where they gave her some dextrose. The patient appears slightly confused during evaluation in the Emergency Room, but otherwise alert and oriented. She was extensively evaluated in the Emergency Room. Her lab works were within acceptable range. Her toxic screen was positive for cannabinoid. Urinalysis was unremarkable. She did have a CT scan of the chest, which was also unremarkable and chest x-ray was unremarkable. She was admitted, started on IV fluid and did very well. PAST MEDICAL HISTORY: Significant for alcoholism for years. She said she quit drinking alcohol on 05/13/2017. She is known to have hypertension, hyperlipidemia, chronic kidney disease stage 4, osteoarthritis. She has also had seizure disorder in July 2017. She has 3 grand mal seizures for which she was started on Keppra and yesterday was the first time she drove after her seizures diagnosed 6 months ago. PAST SURGICAL HISTORY: Significant for total abdominal hysterectomy, bilateral salpingo-oophorectomy. She did have a laparoscopy and unilateral oophorectomy for endometriosis. She underwent esophagogastroduodenoscopy and colonoscopy. ALLERGIES: She is allergic to CODEINE. MEDICATIONS: She is currently on following medications: She is on Flexeril 10 mg 3 times a day, cholestyramine for Questran 4 mg daily, amlodipine 10 mg once a day, levetiracetam 500 mg twice a day, escitalopram oxalate 20 mg daily, olanzapine 5 mg at bedtime, buspirone 15 mg twice a day, oxybutynin chloride extended release 50 mg twice a day, and allopurinol 300 mg daily. REVIEW OF SYSTEMS: The patient denied any blurring of vision, cataract, glaucoma or macular degeneration. Denied any earache, tinnitus, or sensorineural deafness. Denied any nosebleeds, stuffy nose or postnasal drip. Denied any sore throat, sore tongue, toothache, hoarseness of voice or difficulty swallowing. Denied any nausea, vomiting, diarrhea or constipation. Denied any hematemesis, melena or hematochezia. Denied any dysuria, frequency, or hematuria. Did have problem with urinary incontinence. Denied any chest pain, shortness of breath, orthopnea, or paroxysmal nocturnal dyspnea. Denied any cough, phlegm or hemoptysis. Denied any chills, rigors or fever. PHYSICAL EXAMINATION: GENERAL: On arrival to the Emergency Room, she looked well and was clearly in no apparent respiratory distress. No pallor, jaundice, cyanosis, or thyromegaly. No jugular venous distension. No limb edema. VITAL SIGNS: Her heart rate was 70, blood pressure 160/80, temperature was 97.8, respiratory rate 20, and oxygen saturation was 99%. There is no postural hypotension. HEAD, EYES, EARS, NOSE AND THROAT: Normocephalic, atraumatic. NECK: Supple. HEART: Showed normal first and second heart sounds with no gallop, rub or murmur. CHEST: Clear to auscultation. No crepitation or rhonchi. ABDOMEN: Distended, soft, nontender. NEUROLOGIC: She was awake, alert, responding appropriately. Cranial nerves intact. EXTREMITIES: She moves extremities without difficulty. LABORATORY DATA: On arrival showed that her white cell count was 9600, hemoglobin 11.5, hematocrit 33, MCV 91, and platelet count 252,000. Her prothrombin time was 9.3, INR 0.9, aPTT was 24. Her chemistry showed serum sodium of 132, potassium 3.4, chloride 97, bicarbonate 24, anion gap of 11, BUN 31, creatinine 1.8, estimated GFR was 28 mL per minute. Her glucose 114, calcium was 9, and magnesium 2. Total bilirubin, AST, ALT, alkaline phosphatase were normal. Her total protein 6.5, albumin 3.4. Lactic acid 1.4, ammonia 17. She has 3 sets of cardiac enzymes, all negative. Urinalysis was essentially unremarkable. Toxic screen was positive for cannabinoids. We did consult Dr. Hernandez and basically, he recommended that the patient can safely be discharged and to follow with him in 2 weeks' time and to continue meanwhile all her medication including Keppra 500 mg twice a day. FINAL DISCHARGE DIAGNOSES: Dizziness and presyncope, resolved; seizure disorder for which she is on Keppra. She has urinary incontinence, hypertension, hyperlipidemia, chronic kidney disease, osteoarthritis. ESPERANZA OBREGON MD DR: RANJANA/jesika JOB#: [id number] / [id number]
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
[2018-01-09] MEDS ORDERED: levETIRAcetam 500 MG TABLET PO SCH (21:00)
== END 2018-01-09 14:52 | disposition home or self-care (01) ==
LOC: ER 21:57 → 1 SOUTH 01-09 01:02
PROVIDERS: ADMIT Internal Medicine; ATTEND Internal Medicine
DX: R55 Syncope and collapse (principal); I12.9 Hypertensive chronic kidney disease with stage 1 through stage 4 chronic kidney disease, or unspecified chronic kidney disease; N18.4 Chronic kidney disease, stage 4 (severe); E03.9 Hypothyroidism, unspecified; M19.90 Unspecified osteoarthritis, unspecified site; F32.9 Major depressive disorder, single episode, unspecified; F41.9 Anxiety disorder, unspecified; E78.5 Hyperlipidemia, unspecified; E87.6 Hypokalemia; F12.90 Cannabis use, unspecified, uncomplicated; F17.200 Nicotine dependence, unspecified, uncomplicated; G40.409 Other generalized epilepsy and epileptic syndromes, not intractable, without status epilepticus; K58.9 Irritable bowel syndrome, unspecified; M10.9 Gout, unspecified; Z82.49 Family history of ischemic heart disease and other diseases of the circulatory system; Z83.3 Family history of diabetes mellitus; Z90.710 Acquired absence of both cervix and uterus; Z90.721 Acquired absence of ovaries, unilateral; Z79.899 Other long term (current) drug therapy
CPT/HCPCS: 36415; 70450; 71045; 80053; 80307; 81001; 82140; 82553; 82947; 83605; 83735; 84484; 85025; 85610; 85730; 87086; 93005; 96360; 96361; 97161; 99285; G0378; G0480; G8978; G8979; G8980; G0379; G0479; J7030

== ENCOUNTER 2019-01-15 20:08 | Inpatient (IN) | payer MEDICARE, BC ==
[~2019-01-15] VITALS: Ht 154.9 cm; Wt 56.4 kg
[~2019-01-15 20:08] MED LIST changes: +AMLO10TA8 PO; +BUSP15TA PO; +ESCI20TA2 PO; +HYDR-2155 PO; -HYDR-2758 PO; +LEVE500T6 PO; +LOSA25TA11 PO; -LOSA25TA5 PO; +OLAN5TAB9 PO
[2019-01-15] MEDS ORDERED: IV NORMAL SALINE 1,000ML 1,000 ML IV ONE ×2 (20:45→22:30)
--- NOTE | 2019-01-15 21:10 | PHYS DOC ---
Past History Past Medical History: Alcoholism, Hypertension, Seizure Past Surgical History: Hysterectomy Smoking: Quit Greater Than 1 Year Alcohol Use: Sober Drug Use: Marijuana, Opiates Adult General Chief Complaint Chief Complaint: vomiting, weakness HPI HPI 68-year-old female presents EMS from home with vomiting and profound weakness. The patient felt very weak earlier today. She had to lye in her feces and urine for several hours. EMS arrived and helped her get up. She did not come at that time. He called EMS a few hours later, because she felt so she didn't think she stand up or move around. She has had a problem with hypoglycemia. She is unsure about her blood sugar today. She has not anything to eat or drink today. She has had several episodes of vomiting and diarrhea today. She has intermittent vomiting at the slide and several days a week. She denies fever or chills. Review of Systems Review of Systems Constitutional: Denies fever or chills [] Eyes: Denies change in visual acuity, redness, or eye pain [] HENT: Denies nasal congestion or sore throat [] Respiratory: Denies cough or shortness of breath [] Cardiovascular: No additional information not addressed in HPI [] GI: Denies abdominal pain, nausea, vomiting, bloody stools or diarrhea [] : Denies dysuria or hematuria [] Musculoskeletal: Denies back pain or joint pain [] Integument: Denies rash or skin lesions [] Neurologic: Denies headache, focal weakness or sensory changes [] Endocrine: Denies polyuria or polydipsia [] All other systems were reviewed and found to be within normal limits, except as documented in this note. Current Medications Current Medications Current Medications Medications (Trade) Dose Ordered Sig/Onur Start Time Stop Time Status Last Admin Dose Admin Sodium Chloride 1,000 ml @ 1,000 mls/hr 1X ONCE 01/15/19 20:45 01/15/19 21:44 Allergies Allergies Allergies Coded Allergies Type Severity Reaction Last Updated Verified codeine Allergy Unknown 09/17/17 Yes Physical Exam Physical Exam Constitutional: Well developed, well nourished, no acute distress, non-toxic appearance. [] HENT: Normocephalic, atraumatic, bilateral external ears normal, oropharynx moist, no oral exudates, nose normal. [] Eyes: PERRLA, EOMI, conjunctiva normal, no discharge. [] Neck: Normal range of motion, no tenderness, supple, no stridor. [] Cardiovascular:Heart rate regular rhythm, no murmur [] Lungs & Thorax: Bilateral breath sounds clear to auscultation [] Abdomen: Bowel sounds normal, soft, no tenderness, no masses, no pulsatile masses. [] Skin: Warm, dry, no erythema, no rash. [] Back: No tenderness, no CVA tenderness. [] Extremities: No tenderness, no cyanosis, no clubbing, ROM intact, no edema. [] Neurologic: Alert and oriented X 3, normal motor function, normal sensory function, no focal deficits noted. [] Psychologic: Affect normal, judgement normal, mood normal. [] EKG EKG [] Radiology/Procedures Radiology/Procedures [] Course & Med Decision Making Course & Med Decision Making Pertinent Labs and Imaging studies reviewed. (See chart for details) The patient's labs significant for an elevated BUN and creatinine. Her anion gap is 22. We'll give her a liter of normal saline. The patient's workup was significant for UTI. I'll give the patient 1 g of Rocephin. Given her infection and generalized weakness, I will admit her to the hospital. The patient has a lactic acid of 2.0. We are giving her a second liter of fluid. I discussed the patient with Dr. Armstrong and he has accepted her for admission. The patient is in agreement with this plan. [] Dragon Disclaimer Dragon Disclaimer This electronic medical record was generated, in whole or in part, using a voice recognition dictation system. Departure Departure: Impression: Primary Impression: UTI (urinary tract infection) Additional Impression: Weakness Disposition: 09 ADMITTED INPATIENT Admitting Physician: Ada Armstrong Condition: STABLE Referrals: CHARLES PATE MD (PCP) Problem Qualifiers Primary Impression: UTI (urinary tract infection) Urinary tract infection type: acute cystitis Hematuria presence: with hematuria Qualified Codes: N30.01 - Acute cystitis with hematuria RICHARD MAGANA DO Jan 15, 2019 21:10
[2019-01-15] MEDS ORDERED: ONDANSETRON PF 4 MG/2 ML VIAL. IV ONE ×2 (21:15→23:30)
[2019-01-15] MEDS ORDERED: LOPERAMIDE 2 MG CAPSULE PO ONE (21:15)
[2019-01-15 21:29] LABS: BASO # 0.1 x10^3/uL (0.0-0.2); BASO % 1 % (0-3); EOS % 0 % (0-3); HEMATOCRIT 36.3 % (36.0-47.0); LYMPH # 0.8 x10^3/uL (1.0-4.8); LYMPH % 8 % (24-48); MEAN CORPUSCULAR HEMOGLOBIN 35 pg (25-35); MEAN CORPUSCULAR HGB CONC 33 g/dL (31-37); MEAN CORPUSCULAR VOLUME 105 fL (79-100); MONO # 0.7 x10^3/uL (0.0-1.1); MONO % 7 % (0-9); NEUT % 84 % (31-73); PLATELET COUNT 209 x10^3/uL (140-400); RED BLOOD COUNT 3.45 x10^6/uL (3.50-5.40); RED CELL DISTRIBUTION WIDTH 14.2 % (11.5-14.5); WHITE BLOOD COUNT 9.6 x10^3/uL (4.0-11.0)
[2019-01-15 21:41] LABS: BACTERIA,URINE MOD /HPF (0-FEW); BILIRUBIN,URINE NEG (NEG); CLARITY,URINE CLOUDY; COLOR,URINE YELLOW; GLUCOSE,URINE NEG (NEG); NITRITE,URINE NEG (NEG); UROBILINOGEN,URINE 0.2 mg/dL (0.2 mg/dL)
[2019-01-15 21:42] LABS: ALBUMIN 2.8 g/dL (3.4-5.0); ALBUMIN/GLOBULIN RATIO 0.8 (1.0-1.7); CALCIUM 8.6 mg/dL (8.5-10.1); CREATININE 1.7 mg/dL (0.6-1.0); GFR 29.7; POTASSIUM 4.2 mmol/L (3.5-5.1); SQUAMOUS EPITHELIAL CELL,UR OCC /LPF; TOTAL BILIRUBIN 0.3 mg/dL (0.2-1.0); TOTAL PROTEIN 6.3 g/dL (6.4-8.2)
[2019-01-15] MEDS ORDERED: cefTRIAXone SODIUM 1 GM VIAL ONE (22:31)
[2019-01-15] MEDS ORDERED: IV NORMAL SALINE 50ML 50 ML ONE (22:31)
[2019-01-15] MEDS ORDERED: FAMOTIDINE 20 MG/2 ML VIAL IVP ONE (23:30)
[2019-01-15] MEDS ORDERED: ONDANSETRON PF 4 MG/2 ML VIAL. IV PRN (23:30)
[2019-01-15] MEDS: CALCIUM CARBONATE 500 MG TAB.CHEW PO PRN (23:51)
--- NOTE | 2019-01-16 01:15 | NUR ---
The patient, DIAN RAMOS, 68 y/o, F admitted by ESPERANZA OBREGON MD, was given written information regarding hospital policies, unit procedures and contact persons. Pt admitted via ambulance to room 109. Valuables were checked and left with patient. Pt cooperative upon admission. VSS stable. Will CTM.
[2019-01-16 01:41] VITALS: BP 110/66
[2019-01-16] MEDS ORDERED: FURO20TA3 PO (01:59)
[2019-01-16] MEDS ORDERED: MIRA50TA PO (01:59)
[2019-01-16 06:36] VITALS: BP 105/63
[2019-01-16] MEDS: levETIRAcetam 500 MG TABLET PO SCH ×2 (09:26→21:19)
[2019-01-16] MEDS ORDERED: FUROSEMIDE 20 MG TABLET PO SCH (09:30)
[2019-01-16] MEDS ORDERED: MIRABEGRON 25 MG TAB.ER.24H PO SCH (09:30)
[2019-01-16] MEDS ORDERED: ALLOPURINOL 300 MG TABLET. PO SCH (09:30)
[2019-01-16 10:01] VITALS: BP 128/61
[2019-01-16] MEDS: amLODIPine BESYLATE 10 MG TABLET PO SCH (10:50)
[2019-01-16] MEDS: CITALOPRAM 20 MG TABLET. PO SCH (10:50)
[2019-01-16] MEDS: busPIRone 15 MG TABLET. PO SCH ×2 (10:50→21:18)
[2019-01-16 11:15] VITALS: BP 117/81
[2019-01-16] MEDS ORDERED: chlordiazePOXIDE HCL 25 MG CAPSULE PO PRN ×2 (11:15)
[2019-01-16] MEDS: ALLOPURINOL 100 MG TABLET. PO SCH (11:15)
[2019-01-16 11:24] LABS: CALCIUM 7.8 mg/dL (8.5-10.1); CREATININE 1.7 mg/dL (0.6-1.0); GFR 29.7; POTASSIUM 3.8 mmol/L (3.5-5.1)
--- NOTE | 2019-01-16 11:32 | HP ---
ADMIT DATE: 01/16/2019 HISTORY OF PRESENT ILLNESS: The patient is a 68-year-old female patient, who was brought to the Emergency Room of [facility] by the emergency medical service personnel from home with profound weakness and recurrent bouts of nausea and vomiting. She stated that she has to lie on her feces and urine for several hours. EMS arrived and helped her get up. She did not come at that time. Her brother called her AMS a few hours later because she felt that she cannot stand up or move around. She has had a problem with hypoglycemia. She is unsure about her blood sugar. She has not eaten anything or drank anything the whole day and has had several episodes of vomiting and diarrhea, was brought to the Emergency Room where she was evaluated and was found to be dehydrated and was given 2 liters of fluid while in the Emergency Room, was found also to have UTI and was started on IV ceftriaxone. PAST MEDICAL HISTORY: Significant for alcoholism. She continues unfortunately to drink a pint of whiskey although she went for rehab. She unfortunately continued to drink on a daily basis. She is known to have hypertension, hyperlipidemia, chronic kidney disease, stage 4; generalized osteoarthritis. She has also had seizure disorder diagnosed in 07/2017. She has had 3 grand mal seizures for which she was started on Keppra. She is also known to have gout and overactive bladder. PAST SURGICAL HISTORY: Significant for total abdominal hysterectomy, bilateral salpingo-oophorectomy, had laparoscopy and unilateral oophorectomy for endometriosis. She underwent esophagogastroduodenoscopy and colonoscopy. ALLERGIES: SHE IS ALLERGIC TO CODEINE. MEDICATIONS: She is currently on following medications: She is on Flexeril 10 mg 3 times a day as needed, cholestyramine with sugar for Questran 1 packet daily, amlodipine besylate 10 mg once a day, levetiracetam 500 mg twice a day, escitalopram oxalate 20 mg daily, olanzapine 5 mg at bedtime, buspirone 15 mg twice a day, furosemide 20 mg once a day, oxybutynin chloride 50 mg p.o. b.i.d. and Myrbetriq 50 mg p.o. daily. She is on allopurinol 300 mg daily. FAMILY HISTORY: Noncontributory. SOCIAL HISTORY: She lives alone. She continued to smoke marijuana and drinking a pint of whiskey. Does not smoke cigarettes. REVIEW OF SYSTEMS: As per history of present illness. PHYSICAL EXAMINATION: GENERAL: On examining her, she was resting slightly propped up in bed, in no apparent respiratory distress, slightly pale, but no jaundice, cyanosis or thyromegaly. No jugular venous distention. No limb edema. VITAL SIGNS: Her heart rate was 91, blood pressure was 166/72, temperature was 97.6, respiratory rate was 24, and oxygen saturation was 99% on room air. HEAD, EYES, EARS, NOSE AND THROAT: Showed normocephalic, atraumatic. NECK: Supple. HEART: Showed normal first and second heart sounds with no gallop, rub or murmur. CHEST: Clear to auscultation. No crepitation, rhonchi. ABDOMEN: Distended, soft, nontender. NEUROLOGIC: She is awake, alert, responding appropriately. All cranial nerves intact. EXTREMITIES: She moves extremities without difficulty. She ambulates without assistance or assistive device, although she is complaining of profound weakness. LABORATORY DATA: Showed a white cell count 9600, hemoglobin 12, hematocrit 36, MCV 105 and platelet count of 209,000 with normal manual differential. Her serum sodium was 139, potassium 4.2, chloride 102, bicarbonate 15, anion gap of 22, BUN 33, creatinine 1.7, estimated GFR was 29 mL per minute. Her glucose was 71, lactic acid was 2. Calcium was 8.6. Total bilirubin, ALT, alkaline phosphatase were normal. AST slightly elevated. Her CK was 117, total protein was 6.3, albumin was 2.8. Her urinalysis showed the urine was yellow, cloudy with a pH of 5.5, specific gravity of 1.020, there was large amount of protein, negative for glucose, small amount of ketones, small amount of blood, negative for nitrite, trace of leukocyte esterase, 1-2 rbc's, 11-20 wbc's, and moderate amount of bacteria. ASSESSMENT AND PLAN: In summary, this is a 68-year-old female patient, who was admitted with recurrent bouts of nausea, vomiting and diarrhea together with profound weakness. She was found to have acute on chronic kidney injury. She continues to drink alcohol heavily and has also seizure disorder. My plan is to obviously as she is now able to eat and drink, we will advance her diet to full liquid diet and eventually to regular diet. We will continue with Keppra 500 mg twice a day, will be started on a banana bag and alcohol withdrawal protocol. Continue with IV ceftriaxone for urinary tract infection. ESPERANZA OBREGON MD DR: RANJANA/jesika JOB#: [id number] / [id number]
[2019-01-16] MEDS: [UNRECOGNIZED DRUG - REMARK] IV SCH ×4 (11:35)
[2019-01-16] MEDS: MIRABEGRON 25 MG TAB.ER.24H PO SCH (11:35)
--- NOTE | 2019-01-16 12:00 | NUR ---
Pt's blood sugar mid-morning was 50. This RN took pt orange juice, and pt was already eating a fruit bar. Pt's blood sugar reassessed, found to be 72. WCASHLEIGH. Carlos Hamlin RN
--- NOTE | 2019-01-16 12:30 | NUR ---
Medication review Pt received Rocephin in ED for UTI. This RN, per discussion with Pharmacy, asked Dr. Armstrong if he would be ordering an ABX. He stated that he would not at this time. Reviewed pt's other medications with Dr. Armstrong and pharmacy. Pharmacy recommended decreasing Allopurinol and Myrbetriq given pt's creatinine clearance (23.2). Dr. Armstrong concurred, ordering her Allopurinol held till tomorrow and decreasing it from 300mg to 100mg. He also decreased her Myrbetriq from 50mg to 25mg, but stated that it could be given today. He ordered her Lasix held given her BUN and creatinine clearance, ordering a banana bag with D5 as the base fluid to alternate with NS at 100mL/hour. All other home Rx could be given. Dr. Armstrong was asked whether to start any VTE prophylaxis. He stated to hold prophylaxis for the time being given kidney function and reevaluate tomorrow. If kidney function does not change, he may initiate Heparin as Lovenox is inappropriate at this time given kidney function. Pt stated during Dr. Armstrong rounding that she drinks approx 1 pint of [place] whiskey a day. CIWA protocol initiated. WCTM. Carlos Hamlin RN
--- NOTE | 2019-01-16 12:35 | NUR ---
Pt asked if this RN could call her brother to let him know she would not be returning home today. This RN spoke with Moy Roth, pt's brother, and updated pt's paper chart to reflect him as the primary POC. WCTM. Carlos Hamlin RN
[2019-01-16 14:30] VITALS: BP 96/59
--- NOTE | 2019-01-16 16:11 | NUR ---
Natasha informed this RN that pt did not have a phone in her room. This RN took a phone into pt's room, but pt stated that she did not want a phone in her room. Phone removed. RUSTY. Carlos Hamlin RN
--- NOTE | 2019-01-16 17:57 | NUR ---
Pt stated she was having pain in her neck. No swelling or other abnormalities upon palpation. Offered heat pack, which pt accepted. WCTM. Carlos Hamlin RN
[2019-01-16] MEDS ORDERED: ACETAMINOPHEN 325 MG TABLET PO PRN (18:00)
[2019-01-16 18:05] VITALS: BP 145/76
[2019-01-16] MEDS: IV NORMAL SALINE 1,000ML 1,000 ML IV SCH (22:00)
[2019-01-17 06:46] LABS: HEMATOCRIT 37.7 % (36.0-47.0); HEMOGLOBIN 12.6 g/dL (12.0-15.5); RED BLOOD COUNT 3.64 x10^6/uL (3.50-5.40); RED CELL DISTRIBUTION WIDTH 14.3 % (11.5-14.5); WHITE BLOOD COUNT 10.2 x10^3/uL (4.0-11.0)
[2019-01-17 06:55] LABS: ALBUMIN 2.9 g/dL (3.4-5.0); ALBUMIN/GLOBULIN RATIO 0.8 (1.0-1.7); CALCIUM 8.8 mg/dL (8.5-10.1); CREATININE 1.6 mg/dL (0.6-1.0); GFR 31.9; TOTAL BILIRUBIN 0.4 mg/dL (0.2-1.0); TOTAL PROTEIN 6.4 g/dL (6.4-8.2)
[2019-01-17 06:57] LABS: POTASSIUM 3.4 mmol/L (3.5-5.1)
[2019-01-17] MEDS: busPIRone 15 MG TABLET. PO SCH ×2 (06:58→21:29)
[2019-01-17 07:23] VITALS: BP 169/77
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
[2019-01-17] MEDS: CITALOPRAM 20 MG TABLET. PO SCH (08:18)
[2019-01-17] MEDS: ALLOPURINOL 100 MG TABLET. PO SCH (08:18)
[2019-01-17] MEDS: levETIRAcetam 500 MG TABLET PO SCH ×2 (08:19→21:29)
[2019-01-17] MEDS: amLODIPine BESYLATE 10 MG TABLET PO SCH (08:20)
[2019-01-17] MEDS: MIRABEGRON 25 MG TAB.ER.24H PO SCH (08:20)
[2019-01-17] MEDS ORDERED: LORazepam 1 MG TABLET PO PRN (09:00)
[2019-01-17] MEDS: NITROGLYCERIN SUBLINGUAL 0.4 MG BOTTLE OF 25. SL PRN ×3 (09:27→16:36)
[2019-01-17] MEDS: IV NORMAL SALINE 1,000ML 1,000 ML IV SCH ×2 (10:24→16:00)
[2019-01-17 10:47] VITALS: BP 158/80
[2019-01-17 10:48] VITALS: BP 148/80
[2019-01-17] MEDS: [UNRECOGNIZED DRUG - REMARK] IV SCH ×4 (11:00)
[2019-01-17 14:21] VITALS: BP 145/77
[2019-01-17] MEDS: NITROGLYCERIN OINT 1 GM PACKET. TP SCH (17:44)
--- NOTE | 2019-01-17 18:25 | PDOC ---
Exam Note: Huber Note: Please also refer to the separate dictated note~for this date of service dictated separately.~Patient seen individually. Discussed the patient with Nursing staff reviewed the chart.~Reviewed interim history and current functioning. Reviewed vital signs,~Labs/ Radiology~and current medications noted below. Continue current treatment with the changes noted in the dictated addendum note Assessment: Vital Signs/I&O: Vital Signs Date Time Temp Pulse Resp B/P (MAP) Pulse Ox O2 Delivery O2 Flow Rate FiO2 01/17/19 17:44 109 149/82 01/17/19 14:21 98.9 20 96 Nasal Cannula 2.0 I & O 01/16/19 01/16/19 01/17/19 14:59 22:59 06:59 Intake Total 660 ml 1120 ml Balance 660 ml 1120 ml Labs: Laboratory Tests Test 01/17/19 06:30 01/17/19 09:15 01/17/19 17:35 White Blood Count 10.2 x10^3/uL (4.0-11.0) Red Blood Count 3.64 x10^6/uL (3.50-5.40) Hemoglobin 12.6 g/dL (12.0-15.5) Hematocrit 37.7 % (36.0-47.0) Mean Corpuscular Volume 104 fL (79-100) H Mean Corpuscular Hemoglobin 35 pg (25-35) Mean Corpuscular Hemoglobin Concent 33 g/dL (31-37) Red Cell Distribution Width 14.3 % (11.5-14.5) Platelet Count 151 x10^3/uL (140-400) Sodium Level 141 mmol/L (136-145) Potassium Level 3.4 mmol/L (3.5-5.1) L Chloride Level 106 mmol/L (98-107) Carbon Dioxide Level 22 mmol/L (21-32) Anion Gap 13 (6-14) Blood Urea Nitrogen 18 mg/dL (7-20) Creatinine 1.6 mg/dL (0.6-1.0) H Estimated GFR (Cockcroft-Gault) 31.9 BUN/Creatinine Ratio 11 (6-20) Glucose Level 68 mg/dL (70-99) L Calcium Level 8.8 mg/dL (8.5-10.1) Total Bilirubin 0.4 mg/dL (0.2-1.0) Aspartate Amino Transferase (AST) 32 U/L (15-37) Alanine Aminotransferase (ALT) 21 U/L (14-59) Alkaline Phosphatase 76 U/L (46-116) Total Protein 6.4 g/dL (6.4-8.2) Albumin 2.9 g/dL (3.4-5.0) L Albumin/Globulin Ratio 0.8 (1.0-1.7) L D-Dimer (Kassi) 1.31 mg/L (0.00-0.50) H Troponin I Quantitative < 0.017 ng/mL (0-0.055) < 0.017 ng/mL (0-0.055) Current Medications: Meds: Current Medications Medications (Trade) Dose Ordered Sig/Onur Route PRN Reason Start Time Stop Time Status Last Admin Dose Admin Sodium Chloride 1,000 ml @ 100 mls/hr Q10H IV 01/16/19 20:00 01/17/19 17:20 Lorazepam (Ativan) 2 mg PRN 1X PRN PO ANXIETY / AGITATION 01/17/19 09:00 01/17/19 09:27 Nitroglycerin (Nitrostat) 0.4 mg PRN Q5MIN PRN SL CHEST PAIN 01/17/19 09:00 01/17/19 16:36 Ceftriaxone Sodium 1 gm/ Sodium Chloride 50 ml @ 100 mls/hr Q24H IV 01/17/19 14:00 01/17/19 15:57 Nitroglycerin (Nitro-Bid Oint) 2 inch Q6HRS TP 01/17/19 18:00 01/17/19 17:44 I have reviewed the current psychotropics carefully including drug interactions. Risk benefit ratio favors no change other than as noted in my dictated progress note. Diagnosis: Problems: (1) Anxiety disorder (2) Major depressive disorder, recurrent episode (3) UTI (urinary tract infection) (4) Weakness (5) Seizure disorder DASHA GIBSON MD Jan 17, 2019 18:25
--- NOTE | 2019-01-17 19:11 | RAD ---
Lung scan 01/17/2019 CLINICAL HISTORY: Chest pain with elevated d-dimer. TECHNIQUE: After the administration of 8 mCi of Xenon-133 gas, ventilation images of both lungs were obtained using the gamma camera. After the intravenous administration of 5.5 mCi of technetium 99m MAA, perfusion images of both lungs were obtained using the gamma camera. FINDINGS: Comparison is made to portable chest radiograph concurrently with this examination. This demonstrates left lower lobe atelectasis and/or infiltrate. The ventilation and perfusion images are heterogeneous. Matched ventilation and perfusion subsegmental defects are seen involving both lungs. No unmatched perfusion defect is seen. These findings are consistent with a low probability study for pulmonary embolism. IMPRESSION: Low probability study. Electronically signed by: Steve Lopez MD (01/17/2019 7:08 PM) [facility]
[2019-01-17 21:28] VITALS: BP 132/77
[2019-01-17] MEDS: LACTOBACILLUS RHAMNOSUS GG 1 CAPSULE. PO SCH (21:29)
[2019-01-17] MEDS: HEPARIN for SUB-Q USE 5,000 UNIT/ML VIAL. SQ SCH (22:00)
--- NOTE | 2019-01-17 23:56 | PN ---
DATE: 01/17/2019 SUBJECTIVE: The patient is resting, slightly propped up in bed, in no apparent respiratory distress. She was admitted yesterday with a complaint of profound weakness and recurrent bouts of nausea and vomiting. She was lying in her feces and urine for several hours. She apparently was unable to stand or move. She was basically admitted with dehydration, profound weakness and acute on chronic kidney injury. She was started on a clear liquid diet and IV ceftriaxone for urinary tract infection as well as banana bag and alcohol withdrawal protocol. She did complain of chest pain this morning and we did an EKG as well as troponin and D-dimer. Her lab work this morning showed that she had mild hypokalemia with potassium 3.4. Her troponin was less than 0.017 and her D-dimer was elevated at 1.31. Her white cell count was normal. PHYSICAL EXAMINATION: GENERAL: When I examined her this afternoon, she looked pale, but no jaundice, cyanosis or thyromegaly. No jugular venous distention. No limb edema. VITAL SIGNS: Her heart rate was 93, blood pressure 148/80, temperature was 98.2, respiratory rate was 20, and oxygen saturation was 97% on 2 liters of oxygen. HEAD, EYES, EARS, NOSE AND THROAT: Showed normocephalic, atraumatic. NECK: Supple. HEART: Showed normal first and second heart sounds. No gallop or murmur. CHEST: Clear to auscultation. No crepitation or rhonchi. ABDOMEN: Distended, soft, nontender. NEUROLOGIC: She was sleepy, but arousable. All cranial nerves are intact. She moves extremities without difficulty, although she is mostly bed bound. Her intake over the last 24 hours was 2015, no output was recorded. LABORATORY DATA: According to nursing staff, she is incontinent of both bowel and bladder. Her lab work this morning showed a white cell count of 10,200, hemoglobin 12.6, hematocrit 38, MCV 104, and platelet count of 151,000. Her serum sodium was 141, potassium 3.4, chloride 106, bicarbonate 22, anion gap of 13, BUN 18, creatinine 1.6, estimated GFR was 32 mL per minute. Her glucose was 68, calcium was 8.8. Total bilirubin, AST, ALT, alkaline phosphatase were normal. Total protein was 6.4, albumin 2.9. Her D-dimer was 1.31 and her urine culture is still pending at the time of this dictation. ASSESSMENT: 1. Recurrent bouts of nausea, vomiting, diarrhea, profound weakness, has had no more diarrhea, no more nausea or vomiting. 2. Acute on chronic kidney injury. Her creatinine is slightly down from 1.7 to 1.6 and the BUN is down from 33-18. 3. Hypertension. 4. Hyperlipidemia. 5. Generalized osteoarthritis. 6. She has a seizure disorder for which she is on Keppra. PLAN: To continue with IV fluid, continue with the banana bag. Continue with alcohol withdrawal protocol. We will continue with IV ceftriaxone. We will consult Physical and Occupational therapist to assist with management. ESPERANZA OBREGON MD DR: RANJANA/jesika JOB#: [id number] / [id number]
--- NOTE | 2019-01-18 00:18 | RAD ---
AP portable chest radiograph 01/17/2019 Clinical History: Chest pain with elevated d-dimer. An AP erect portable digital radiograph of the chest was obtained. Comparison study is dated 01/08/2018. The patient is rotated to the left. The cardiac silhouette is normal in size. The thoracic aorta is tortuous. Atherosclerotic calcification of the thoracic aorta is seen. Left lower lobe atelectasis and/or infiltrate is noted. No pneumothorax or pleural effusion is seen. Degenerative changes are seen involving the thoracic spine. Impression: Left lower lobe atelectasis and/or infiltrate. Electronically signed by: Steve Lopez MD (01/18/2019 12:15 AM) [facility]
[2019-01-18] MEDS: IV NORMAL SALINE 1,000ML 1,000 ML IV SCH ×3 (04:59→21:17)
[2019-01-18 05:27] VITALS: BP 129/79
[2019-01-18] MEDS: NITROGLYCERIN OINT 1 GM PACKET. TP SCH ×5 (06:00→22:08)
[2019-01-18] MEDS: HEPARIN for SUB-Q USE 5,000 UNIT/ML VIAL. SQ SCH (06:00)
--- NOTE | 2019-01-18 08:18 | PDOC2 ---
CARDIAC CONSULT DATE OF CONSULT Date Of Consult DATE: 01/18/19 TIME: 08:14 REASON FOR CONSULT Reason for Consult Chest pain REFERRING PHYSICIAN Referring Physician Dr. Armstrong SOURCE Source: Chart review, Patient HPI History of Present Illness This is a 68 yo female, with a history of alcoholism, seizures, hypertension, and depression, who presented secondary to nausea/vomiting, weakness, and fall. Patient reports that she reached over to olive picker a glass of water. Reached too far and lost her balance, falling to the floor. Has been extremely weak for the last week. C/o nausea/vomiting for the last couple of months. Report this generally occurs when she is drinking alcohol. Complains of intermittent pain across he chest for the last week. Occurs when talking a deep breath. Describes as stretching pain. No associated shortness of breath, dizziness, or diaphoresis. PAST MEDICAL HISTORY Cardiovascular: HTN Pulmonary: No pertinent hx CENTRAL NERVOUS SYSTEM: Seizure GI: GERD, Irritable bowel disease Heme/Onc: No pertinent hx Psych: Anxiety, Addictions (ETOH), Depression Musculoskeletal: Osteoarthritis Rheumatologic: Gout Infectious disease: No pertinent hx Renal/: Chronic renal insuff, Urinary Incontinence Endocrine: Hypothyroidism Dermatology: No pertinent hx PAST SURGICAL HISTORY Past Surgical History: Hysterectomy, Other (right foot surgery ) FAMILY HISTORY Family History: Heart Disease (father ), Other (renal disease- mother ) SOCIAL HISTORY Smoke: No ALCOHOL: heavy (1 pint whiskey daily; last drink reportedly Wednesday) Drugs: Marijuana Lives: Alone CURRENT MEDICATIONS Current Medications Current Medications Sodium Chloride 1,000 ml @ 1,000 mls/hr 1X ONCE IV Last administered on 01/15/19at 21:32; Start 01/15/19 at 20:45; Stop 01/15/19 at 21:44; Status DC Ondansetron HCl (Zofran) 4 mg 1X ONCE IV Last administered on 01/15/19at 21:32; Start 01/15/19 at 21:15; Stop 01/15/19 at 21:37; Status DC Loperamide HCl (Imodium) 2 mg 1X ONCE PO Last administered on 01/15/19at 21:32; Start 01/15/19 at 21:15; Stop 01/15/19 at 21:37; Status DC Ceftriaxone Sodium 1 gm/ Sodium Chloride 50 ml @ 100 mls/hr 1X ONCE IV Last administered on 01/15/19at 22:35; Start 01/15/19 at 22:30; Stop 01/15/19 at 22:59; Status DC Sodium Chloride 1,000 ml @ 1,000 mls/hr 1X ONCE IV Last administered on 01/15/19at 23:43; Start 01/15/19 at 22:30; Stop 01/15/19 at 23:29; Status DC Sodium Chloride 50 ml @ As Directed STK-MED ONCE .ROUTE ; Start 01/15/19 at 22:31; Stop 01/15/19 at 22:31; Status DC Ceftriaxone Sodium (Rocephin) 1 gm STK-MED ONCE .ROUTE ; Start 01/15/19 at 22:31; Stop 01/15/19 at 22:31; Status DC Calcium Carbonate/ Glycine (Tums) 500 mg PRN AFTMEALHC PRN PO INDIGESTION Last administered on 01/15/19at 23:51; Start 01/15/19 at 23:15 Ondansetron HCl (Zofran) 4 mg PRN Q4HRS PRN IV NAUSEA/VOMITING; Start 01/15/19 at 23:30; Stop 01/16/19 at 23:29; Status DC Famotidine (Pepcid Vial) 20 mg 1X ONCE IVP Last administered on 01/15/19at 23:43; Start 01/15/19 at 23:30; Stop 01/16/19 at 00:19; Status DC Ondansetron HCl (Zofran) 4 mg 1X ONCE IV Last administered on 01/15/19at 23:43; Start 01/15/19 at 23:30; Stop 01/16/19 at 00:19; Status DC Levetiracetam (Keppra) 500 mg BID PO Last administered on 01/17/19at 21:34; Start 01/16/19 at 09:00 Allopurinol (Zyloprim) 300 mg DAILY PO ; Start 01/16/19 at 09:30; Stop 01/16/19 at 11:05; Status DC Amlodipine Besylate (Norvasc) 10 mg DAILY PO Last administered on 01/17/19at 08 :20; Start 01/16/19 at 09:30 Buspirone HCl (Buspar) 15 mg BID PO Last administered on 01/17/19at 21:34; Start 01/16/19 at 09:30 Furosemide (Lasix) 20 mg DAILY PO ; Start 01/16/19 at 09:30; Stop 01/16/19 at 11:05; Status DC Citalopram Hydrobromide (CeleXA) 40 mg DAILY PO Last administered on 01/17/19at 08:20; Start 01/16/19 at 09:30 Mirabegron (Myrbetriq) 50 mg DAILY PO ; Start 01/16/19 at 09:30; Stop 01/16/19 at 11:08; Status DC Allopurinol (Zyloprim) 100 mg DAILY PO Last administered on 01/17/19at 08:20; Start 01/16/19 at 11:15 Multivitamins/ Minerals 10 ml/ Thiamine HCl 100 mg/Folic Acid 1 mg/Dextrose 1,011.2 ml @ 100 mls/ hr DAILY IV Last administered on 01/17/19at 11:45; Start 01/16/19 at 12:00; Stop 01/22/19 at 11:59 Chlordiazepoxide (Librium) 50 mg PRN Q1HR PRN PO For CIWA 8-14; Start 01/16/19 at 11:15 Chlordiazepoxide (Librium) 100 mg PRN Q1HR PRN PO For CIWA 15 or greater; Start 01/16/19 at 11:15 Lorazepam (Ativan Inj) 2 mg PRN Q15MIN PRN IV AGITATION Last administered on 01/17/19at 18:55; Start 01/16/19 at 11:15 Lorazepam (Ativan Inj) 2 mg PRN Q15MIN PRN IV AGITATION; Start 01/16/19 at 11:15 Mirabegron (Myrbetriq) 25 mg DAILY PO Last administered on 01/17/19at 08:20; Start 01/16/19 at 11:15 Sodium Chloride 1,000 ml @ 100 mls/hr Q10H IV Last administered on 01/18/19at 04:59; Start 01/16/19 at 20:00 Acetaminophen (Tylenol) 650 mg PRN Q6HRS PRN PO PAIN / TEMP Last administered on 01/16/19at 18:05; Start 01/16/19 at 18:00 Lorazepam (Ativan) 2 mg PRN 1X PRN PO ANXIETY / AGITATION Last administered on 01/17/19 09:27; Start 01/17/19 at 09:00 Nitroglycerin (Nitrostat) 0.4 mg PRN Q5MIN PRN SL CHEST PAIN Last administered on 01/17/19at 16:36; Start 01/17/19 at 09:00 Ceftriaxone Sodium 1 gm/ Sodium Chloride 50 ml @ 100 mls/hr Q24H IV Last administered on 01/17/19 15:57; Start 01/17/19 at 14:00 Heparin Sodium (Porcine) (Heparin Sodium) 5,000 unit Q8HRS SQ ; Start 01/17/19 at 22:00 Potassium Chloride (Klor-Con) 20 meq DAILYWBKFT PO ; Start 01/18/19 at 08:00 Nitroglycerin (Nitro-Bid Oint) 2 inch Q6HRS TP Last administered on 01/17/19 17:44; Start 01/17/19 at 18:00 Lactobacillus Rhamnosus (Culturelle) 1 cap BID PO Last administered on 01/17/19 21:34; Start 01/17/19 at 21:00 Active Scripts Active Reported Myrbetriq (Mirabegron) 50 Mg Tab.er.24h 50 Mg PO DAILY Furosemide 20 Mg Tablet 20 Mg PO DAILY Olanzapine 5 Mg Tablet 5 Mg PO PRN QHS PRN LAST DOSE GIVEN: DATE: TIME: NEXT DOSE DUE: DATE: TIME: Allopurinol 300 Mg Tablet 300 Mg PO DAILY LAST DOSE GIVEN: DATE: TIME: NEXT DOSE DUE: DATE: TIME: Escitalopram Oxalate 20 Mg Tablet 20 Mg PO DAILY LAST DOSE GIVEN: DATE: TIME: NEXT DOSE DUE: DATE: TIME: Levetiracetam 500 Mg Tablet 500 Mg PO BID LAST DOSE GIVEN: DATE: TIME: NEXT DOSE DUE: DATE: TIME: Buspirone Hcl 15 Mg Tablet 15 Mg PO BID LAST DOSE GIVEN: DATE: TIME: NEXT DOSE DUE: DATE: TIME: Amlodipine Besylate 10 Mg Tablet 10 Mg PO DAILY LAST DOSE GIVEN: DATE: TIME: NEXT DOSE DUE: DATE: TIME: Ditropan Xl (Oxybutynin Chloride) 15 Mg Tab.er.24 15 Mg PO BID LAST DOSE GIVEN: DATE: TIME: NEXT DOSE DUE: DATE: TIME: Cyclobenzaprine Hcl 10 Mg Tablet 10 Mg PO PRN TID PRN LAST DOSE GIVEN: DATE: TIME: NEXT DOSE DUE: DATE: TIME: Questran Packet (Cholestyramine (With Sugar)) 4 Gm Powd.pack 4 Gm PO DAILY LAST DOSE GIVEN: DATE: TIME: NEXT DOSE DUE: DATE: TIME: ALLERGIES Allergies: Coded Allergies: codeine (Verified Allergy, Unknown, 09/17/17) ROS Review of Systems 14 point ROS conducted with pertinent positives noted above in HPI. PHYSICAL EXAM General: Alert, Oriented X3, Cooperative, No acute distress HEENT: Atraumatic, Mucous membr. moist/pink Lungs: Clear to auscultation Heart: Regular rate, Normal S1, Normal S2 Abdomen: Soft, No tenderness Extremities: No edema, Normal pulses Skin: No rashes, No breakdown Neuro: Sensation intact Psych/Mental Status: Mental status NL, Other (delayed ) MUSCULOSKELETAL: Osteoarthritic changes both hands VITALS Vital Signs Vital Signs Date Time Temp Pulse Resp B/P (MAP) Pulse Ox O2 Delivery O2 Flow Rate FiO2 01/18/19 05:27 98.2 97 16 129/79 (96) 97 Nasal Cannula 1.0 LABS LABS Laboratory Tests Test 01/16/19 11:10 01/16/19 11:49 01/17/19 06:30 01/17/19 09:15 Sodium Level 139 mmol/L (136-145) 141 mmol/L (136-145) Potassium Level 3.8 mmol/L (3.5-5.1) 3.4 mmol/L (3.5-5.1) Chloride Level 106 mmol/L (98-107) 106 mmol/L (98-107) Carbon Dioxide Level 15 mmol/L (21-32) 22 mmol/L (21-32) Anion Gap 18 (6-14) 13 (6-14) Blood Urea Nitrogen 27 mg/dL (7-20) 18 mg/dL (7-20) Creatinine 1.7 mg/dL (0.6-1.0) 1.6 mg/dL (0.6-1.0) Estimated GFR (Cockcroft-Gault) 29.7 31.9 Glucose Level 50 mg/dL (70-99) 68 mg/dL (70-99) Calcium Level 7.8 mg/dL (8.5-10.1) 8.8 mg/dL (8.5-10.1) Glucose (Fingerstick) 72 mg/dL (70-99) White Blood Count 10.2 x10^3/uL (4.0-11.0) Red Blood Count 3.64 x10^6/uL (3.50-5.40) Hemoglobin 12.6 g/dL (12.0-15.5) Hematocrit 37.7 % (36.0-47.0) Mean Corpuscular Volume 104 fL (79-100) Mean Corpuscular Hemoglobin 35 pg (25-35) Mean Corpuscular Hemoglobin Concent 33 g/dL (31-37) Red Cell Distribution Width 14.3 % (11.5-14.5) Platelet Count 151 x10^3/uL (140-400) BUN/Creatinine Ratio 11 (6-20) Total Bilirubin 0.4 mg/dL (0.2-1.0) Aspartate Amino Transf (AST/SGOT) 32 U/L (15-37) Alanine Aminotransferase (ALT/SGPT) 21 U/L (14-59) Alkaline Phosphatase 76 U/L (46-116) Total Protein 6.4 g/dL (6.4-8.2) Albumin 2.9 g/dL (3.4-5.0) Albumin/Globulin Ratio 0.8 (1.0-1.7) D-Dimer (Kassi) 1.31 mg/L (0.00-0.50) Troponin I Quantitative < 0.017 ng/mL (0-0.055) Test 01/17/19 17:35 Troponin I Quantitative < 0.017 ng/mL (0-0.055) ASSESSMENT/PLAN Assessment/Plan 1. Weakness, mechanical fall 2. Persistent nausea/vomiting 3. Alcoholism; 1 pint whiskey daily 4. Seizures 5. Chest pain, atypical. Troponin negative x2- AMI ruled out. Most probably GI in nature 6. Hypertension; controlled 7. Hypokalemia 8. CKD 9. GERD 10. Hypokalemia Recommendations Lipids panel, TSH Replace K, check Mg. Echo to assess LV systolic function. Supportive care Could consider outpatient ischemic evaluation SAMMIE MONREAL APRN Jan 18, 2019 08:18
[2019-01-18] MEDS: [UNRECOGNIZED DRUG - REMARK] IV SCH ×4 (09:26)
[2019-01-18] MEDS: LACTOBACILLUS RHAMNOSUS GG 1 CAPSULE. PO SCH ×2 (09:48→20:28)
[2019-01-18] MEDS: levETIRAcetam 500 MG TABLET PO SCH ×2 (09:48→20:28)
[2019-01-18] MEDS: CITALOPRAM 20 MG TABLET. PO SCH (09:48)
[2019-01-18] MEDS: POTASSIUM CHLORIDE 20 MEQ TABLET.ER. PO SCH (09:48)
[2019-01-18] MEDS: busPIRone 15 MG TABLET. PO SCH ×2 (09:49→20:28)
[2019-01-18] MEDS: ALLOPURINOL 100 MG TABLET. PO SCH (09:49)
[2019-01-18] MEDS: amLODIPine BESYLATE 10 MG TABLET PO SCH (09:52)
[2019-01-18 09:57] VITALS: BP 113/71
[2019-01-18] MEDS: MIRABEGRON 25 MG TAB.ER.24H PO SCH (10:01)
[2019-01-18 11:00] VITALS: BP 122/76
[2019-01-18 11:03] LABS: HEMATOCRIT 33.3 % (36.0-47.0); HEMOGLOBIN 11.2 g/dL (12.0-15.5); RED BLOOD COUNT 3.25 x10^6/uL (3.50-5.40); RED CELL DISTRIBUTION WIDTH 14.2 % (11.5-14.5); WHITE BLOOD COUNT 7.6 x10^3/uL (4.0-11.0)
[2019-01-18 11:14] LABS: CALCIUM 8.3 mg/dL (8.5-10.1); CREATININE 1.4 mg/dL (0.6-1.0); GFR 37.2; POTASSIUM 3.4 mmol/L (3.5-5.1)
[2019-01-18] MEDS ORDERED: POTASSIUM CHLORIDE 20 MEQ TABLET.ER. PO ONE (11:30)
[2019-01-18] MEDS ORDERED: MAGNESIUM SULFATE 2GM 50 ML IV ONE (12:30)
--- NOTE | 2019-01-18 14:30 | NUR ---
Spoke with pt's brother, Moy, and Cherie Hemphill, Plating Stripper, concerning pt placement after discharge. Joby will work with pt and Moy to establish needed legal paperwork to facilitate placement. WCTM. Carlos Hamlin RN
--- NOTE | 2019-01-18 15:14 | CARD ---
MR#: [id number] Date of Study: 01/18/2019 Ordering Physician: DEAN STAPLETON, Referring Physician: DEAN STAPLETON, Tech: Pura Leyva APPROVED REPORT EXAM: Two-dimensional and M-mode echocardiogram with Doppler and color Doppler. Other Information Quality : AverageHR: 91bpm Technically limited study due to Supine patient INDICATION Chest Pain RISK FACTORS Hypertension Hyperlipidemia 2D DIMENSIONS RVDd2.9 (2.9-3.5cm)Left Atrium(2D)2.5 (1.6-4.0cm) IVSd1.1 (0.7-1.1cm)Aortic Root(2D)3.4 (2.0-3.7cm) LVDd4.0 (3.9-5.9cm)LVOT Diameter2.0 (1.8-2.4cm) PWd1.0 (0.7-1.1cm)LVDs2.2 (2.5-4.0cm) FS (%) 45.5 %SV53.7 ml LVEF(%)77.4 (>50%) Aortic Valve AoV Peak Bassam.147.4cm/sAoV VTI27.3cm AO Peak GR.8.7mmHgLVOT Peak Bassam.94.8cm/s LVOT VTI 20.09cmAO Mean GR.5mmHg ADRIANA (VMAX)2.56gn9BAX (VTI)2.36cm2 Mitral Valve MV E Zpostitn08.0cm/sMV DECEL [id number] MV A Wrnakgrj30.0cm/sE/A Ratio1.1 Pulmonary Valve PV Peak Viuvqkwp425.7cm/sPV Peak Grad.4mmHg Tricuspid Valve TR P. Ssowrapo403sq/sRAP KAZROGYC2ntYo TR Peak Gr.96tdRsICYD73npDh Pulmonary Vein S1 Yrhmeepq68.3cm/sD2 Azxnhwgy50.3cm/s LEFT VENTRICLE The left ventricle is normal size. There is mild concentric left ventricular hypertrophy. The left ve ntricular systolic function is normal. The Ejection Fraction is 60-65%. There is normal LV segmental wall motion. Transmitral Doppler flow pattern is Grade II-pseudonormal filling dynamics. RIGHT VENTRICLE The right ventricle is normal size. There is normal right ventricular wall thickness. The right ventr icular systolic function is normal. ATRIA The left atrium size is normal. The right atrium size is normal. The interatrial septum is intact wit h no evidence for an atrial septal defect or patent foramen ovale as noted on 2-D or Doppler imaging. AORTIC VALVE A bicuspid aortic valve cannot be excluded. Doppler and Color Flow revealed no significant aortic reg urgitation. There is no significant aortic valvular stenosis. MITRAL VALVE The mitral valve is normal in structure and function. There is no evidence of mitral valve prolapse. There is no mitral valve stenosis. Doppler and Color-flow revealed trace mitral regurgitation. TRICUSPID VALVE The tricuspid valve is normal in structure and function. Doppler and Color Flow revealed trace to mil d tricuspid regurgitation with an estimated PAP of 38 mmHg. There is no tricuspid valve stenosis. PULMONIC VALVE The pulmonic valve is not well visualized. Doppler and Color Flow revealed mild to moderate pulmonic valvular regurgitation. GREAT VESSELS The aortic root is normal in size. The IVC is normal in size and collapses >50% with inspiration. PERICARDIAL EFFUSION There is no evidence of significant pericardial effusion. Critical Notification Critical Value: No <Conclusion> The left ventricular systolic function is normal. The Ejection Fraction is 60-65%. There is normal LV segmental wall motion. Trace mitral regurgitation. Trace to mild tricuspid regurgitation with an estimated PAP of 38 mmHg. There is no evidence of significant pericardial effusion. Signed by : Julian Hurtado, Electronically Approved : 01/18/2019 15:14:27
[2019-01-18 15:25] VITALS: BP 122/72
[2019-01-18 18:47] VITALS: BP 124/77
[2019-01-18] MEDS: MAGNESIUM OXIDE 400 MG TABLET PO SCH (20:28)
--- NOTE | 2019-01-18 21:00 | PDOC ---
Exam Note: Huber Note: Please also refer to the separate dictated note~for this date of service dictated separately.~Patient seen individually. Discussed the patient with Nursing staff reviewed the chart.~Reviewed interim history and current functioning. Reviewed vital signs,~Labs/ Radiology~and current medications noted below. Continue current treatment with the changes noted in the dictated addendum note Assessment: Vital Signs/I&O: Vital Signs Date Time Temp Pulse Resp B/P (MAP) Pulse Ox O2 Delivery O2 Flow Rate FiO2 01/18/19 19:40 Room Air 01/18/19 18:47 98.9 90 18 124/77 (93) 94 01/18/19 05:27 1.0 I & O 0 01/17/19 01/17/19 01/18/19 14:59 22:59 06:59 Intake Total 740 ml Balance 740 ml Labs: Laboratory Tests Test 01/18/19 10:55 White Blood Count 7.6 x10^3/uL (4.0-11.0) Red Blood Count 3.25 x10^6/uL (3.50-5.40) L Hemoglobin 11.2 g/dL (12.0-15.5) L Hematocrit 33.3 % (36.0-47.0) L Mean Corpuscular Volume 102 fL (79-100) H Mean Corpuscular Hemoglobin 34 pg (25-35) Mean Corpuscular Hemoglobin Concent 34 g/dL (31-37) Red Cell Distribution Width 14.2 % (11.5-14.5) Platelet Count 130 x10^3/uL (140-400) L Sodium Level 138 mmol/L (136-145) Potassium Level 3.4 mmol/L (3.5-5.1) L Chloride Level 107 mmol/L (98-107) Carbon Dioxide Level 21 mmol/L (21-32) Anion Gap 10 (6-14) Blood Urea Nitrogen 13 mg/dL (7-20) Creatinine 1.4 mg/dL (0.6-1.0) H Estimated GFR (Cockcroft-Gault) 37.2 Glucose Level 119 mg/dL (70-99) H Calcium Level 8.3 mg/dL (8.5-10.1) L Magnesium Level 1.4 mg/dL (1.8-2.4) L Current Medications: Meds: Current Medications Medications (Trade) Dose Ordered Sig/Onur Route PRN Reason Start Time Stop Time Status Last Admin Dose Admin Potassium Chloride (Klor-Con) 20 meq DAILYWBKFT PO 01/18/19 08:00 01/18/19 09:54 Potassium Chloride (Klor-Con) 40 meq 1X ONCE PO 01/18/19 11:30 01/18/19 11:31 DC 01/18/19 13:31 Magnesium Oxide (Magnesium Oxide) 400 mg BID PO 01/18/19 21:00 01/20/19 09:01 01/18/19 20:28 Magnesium Sulfate 50 ml @ 25 mls/hr 1X ONCE IV 01/18/19 12:30 01/18/19 14:29 DC 01/18/19 13:31 I have reviewed the current psychotropics carefully including drug interactions. Risk benefit ratio favors no change other than as noted in my dictated progress note. Diagnosis: Problems: (1) Falls (2) Hypokalemia (3) Alcohol withdrawal (4) Diarrhea (5) Acute on chronic renal failure (6) Nausea (7) Dizziness (8) Weakness (9) UTI (urinary tract infection) (10) Anxiety disorder (11) Seizure disorder (12) Major depressive disorder, recurrent episode DASHA GIBSON MD Jan 18, 2019 21:00
[2019-01-18] MEDS: ONDANSETRON ODT 4 MG TAB.RAPDIS PO PRN (22:29)
[2019-01-18 22:30] VITALS: BP 145/82
--- NOTE | 2019-01-18 22:34 | NUR ---
Pt removed school bus monitor. This nurse attempted to educated pt on the importance of leaving the monitor in place. Pt states that she does not have any heart problems and therefore does not need this monitor. Pt refuses to allow this nurse to replace the monitor at this time.
--- NOTE | 2019-01-19 01:42 | PN ---
DATE: 01/18/2019 SUBJECTIVE: The patient is resting flat in bed, in no apparent respiratory distress. She has been complaining of chest pain and has had 3 sets of cardiac enzymes that ruled out myocardial infarction. She has an echocardiogram that showed her left ventricular systolic function is normal, ejection fraction was 60-65%. She has normal left ventricular segmental wall motion, trace mitral regurgitation, trace to mild tricuspid regurgitation, with estimated pulmonary artery pressure of 38 mmHg. There is no evidence of significant pericardial effusion. As her D-dimer was high, we did pulmonary perfusion imaging, which basically showed that the ventilation perfusion images were heterogenous, matched ventilation perfusion subsegmental defects are seen involving both lungs. No unmatched perfusion defect is seen. She has finding consistent with low probability study for pulmonary embolism. The patient was participating in physical therapy and has been able to walk. Her brother is concerned that he would like her to move to assisted living; however, she continued to be adamant; she wants to go back to her room, although she is open to go for rehabilitation. PHYSICAL EXAMINATION: GENERAL: When I examined her this afternoon, she looked pale, but no jaundice, cyanosis, or thyromegaly. No jugular venous distension. No lower limb edema. VITAL SIGNS: Her heart rate was 81, blood pressure was 122/76, temperature was 98.5, respiratory rate was 18 and oxygen saturation was 93%. HEAD, EYES, EARS, NOSE AND THROAT: She is normocephalic, atraumatic. NECK: Supple. HEART: Showed normal first and second heart sounds. No gallop or murmur. CHEST: Clear to auscultation. No crepitation or rhonchi. ABDOMEN: Distended, soft, nontender. No guarding or rigidity. No organomegaly. All hernial orifices intact. Bowel sounds normal. NEUROLOGIC: She is awake, alert, responding appropriately. All cranial nerves intact. She moves extremities without difficulty. She ambulates with a walker with standby assist. LABORATORY DATA: Her lab work this morning showed a white cell count 7600, hemoglobin 11, hematocrit 33, MCV 102 and platelet count of 130,000. Her D-dimer was high at 1.31. Her chemistry this morning showed a serum sodium 138, potassium 3.4, chloride 107, bicarbonate 21, anion gap of 10, BUN 13, creatinine 1.4, estimated GFR was 37 mL per minute. Her glucose 119, calcium was 8.3, magnesium was 1.4. Her serum triglycerides 145, total cholesterol was 222, LDL cholesterol 137, VLDL was 29, HDL was 56 and the ratio was 3. Urinalysis showed trace leukocyte esterase, 11-20 wbc's, moderate amount of bacteria. Her urine culture showed growth of more than 100,000 colony forming units per mL of Escherichia coli. ASSESSMENT: 1. Recurrent bouts of nausea, vomiting, diarrhea, profound weakness, has had no more diarrhea and no more nausea or vomiting. 2. Acute on chronic kidney injury, improving. Her creatinine is down from 1.7 to 1.4. 3. Hypertension. 4. Hyperlipidemia. 5. Generalized osteoarthritis. 6. She has seizure disorder for which she is on Keppra. 7. Recurrent episodes of chest pain. She has 3 sets of cardiac enzymes that ruled out myocardial infarction. Echocardiogram showed she has normal left ventricular systolic function, ejection fraction of 60-65%. 8. Elevated D-dimer with chest pain; however, her pulmonary perfusion ventilation scan was read as low probability. PLAN: To continue with IV fluid, continue with banana bag, continue with alcohol withdrawal. Continue with IV ceftriaxone for urinary tract infection. Continue with physical and occupational therapy. For hypokalemia and hypomagnesemia, we will replenish all these and monitor her electrolytes on a daily basis. ESPERANZA OBREGON MD DR: RANJANA/jesika JOB#: [id number] / [id number]
--- NOTE | 2019-01-19 04:57 | CONS ---
DATE OF CONSULTATION: 01/17/2019 PSYCHIATRIC CONSULTATION This is a late entry 01/17/2019 covers elements not covered in my initial note 01/17/2019. I met with the patient evening of 01/17/2019 in room 109 1 [facility], for a psychiatric consult requested by Dr. Armstrong on account of the patient's heavy alcohol abuse, worsening symptoms of depression, being a danger to herself without active suicidal ideation, but due to significant self-neglect. According to the brother, the patient remains soiled, living in her apartment by herself. Reportedly, she has been drinking half a pint of [place] every day. She has failed outpatient psychiatric interventions. Behaviors are deemed dangerous without the active suicidal ideation, but due to a passive suicidal ideation and circumstances of her living, which have been significantly compromised due to all of the above. I have been asked to consult from a psychiatric standpoint for recommendations while she is being medically stabilized for her dehydration and UTI. CHIEF COMPLAINT: "Yes, I have been drinking heavy. I drink half a pint of [place] every day. I get it myself. Yes, I have been depressed." HISTORY OF PRESENT ILLNESS: The patient was brought to the ER by the emergency medical services from home with profound weakness and recurrent bouts of nausea and vomiting. She stated that she has to lie on her feces and urine for several hours. EMS arrived and helped her get up. She did not come at that time. Her brother called a few hours later because she felt that she could not stand up or move around. She was hypoglycemic. She had not eaten or drank anything the whole day and had several episodes of vomiting and diarrhea. She was dehydrated, given 2 liters of fluids in the ER, found to have a UTI, treated on IV Rocephin and then hospitalized. She does admit to worsening symptoms of depression, feeling hopeless, helpless, worthless and for that she uses increasing amounts of alcohol. PAST PSYCHIATRIC HISTORY: She has had a rehab in the past. MEDICAL HISTORY: Hypertension, hyperlipidemia, chronic kidney disease stage IV, generalized osteoarthritis, seizure disorder with 3 grand mal seizures and then started on Keppra for this, history of overactive bladder and gout. PAST SURGICAL HISTORY: Total abdominal hysterectomy, bilateral salpingo-oophorectomy, had laparoscopy and unilateral oophorectomy for endometriosis. She underwent EGD and colonoscopy. ALLERGIES: CODEINE. CURRENT PSYCHOTROPICS: She is on Keppra 500 mg twice a day for her seizures, Lexapro 20 mg daily, Zyprexa 5 mg at bedtime, BuSpar 15 mg twice a day. FAMILY HISTORY: Noncontributory. 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 She lives alone and has continued to smoke marijuana and use about half to one pint of whiskey a day. She is a nonsmoker. REVIEW OF SYSTEMS: Positive for tiredness, impaired ambulation. MENTAL STATUS EXAMINATION: She is in a wheelchair just returned from her V/Q scan when I saw her, anxious, restless, depressed in her mood. His speech has moderate latency, low in rate and rhythm, low in volume, often responses monosyllabic. Attention span short. Language function intact. She is anxious, restless, distractible. No active suicidal or homicidal ideation. Mood is depressed and anxious. Affect is mood congruent. She does have some short-term memory deficits, but otherwise reasonably oriented. She talked about her primary care physician being Dr. Montano and prior to that was Dr. Dawson with Dr. York, memory in this respect was reasonable. IMPRESSION: Major depressive disorder, recurrent. Mild cognitive impairment, alcohol abuse, dependence. Rest diagnoses as noted above. RECOMMENDATIONS: From a psychiatric standpoint, once the patient is medically stabilized, I would suggest changing her Lexapro to Cymbalta 30 mg a day, increasing in about 7-10 days to 60 mg a day and perhaps later to 90 mg a day. She does need to abstain from alcohol. She should continue with thiamine 100 mg a day, multivitamin, mag oxide 400 mg twice a day, the latter for about 10 days. She would benefit from being in a more structured placement than returning home living by herself, which is more likely to make her relapse to her alcohol abuse. She is still depressed. Once she is medically stabilized, we may consider transitioning her to [facility] to treat her depression prior to placement. Dr. Armstrong, thank you for the opportunity to participate in your patient's care. We will follow with you. MAN Tom GIBSON MD DR: DONNA/jesika JOB#: [id number] / [id number]
[2019-01-19 05:06] VITALS: BP 105/67
[2019-01-19] MEDS: IV NORMAL SALINE 1,000ML 1,000 ML IV SCH ×2 (05:09→18:00)
[2019-01-19] MEDS: NITROGLYCERIN OINT 1 GM PACKET. TP SCH ×4 (05:15→23:49)
--- NOTE | 2019-01-19 05:17 | NUR ---
Went to assess pt for incontinence this morning, pt asked if she needed to go to the restroom. Pt denied needing to go at this time, but reported not wanting to get out of bed. This nurse asked pt if it was all right to check her underwear, pt agreeable. While checking pt, pt starts to become belligerent with staff, asking why must we do this. Attempted to explain to pt that it was importance of keeping her dry and clean to avoid break down and irritation of the skin. Pt remain resistive and hostile towards staff, as they clean and change her brief. VSS. Bed alarm in place.
[2019-01-19 06:58] LABS: CALCIUM 7.9 mg/dL (8.5-10.1); CREATININE 1.2 mg/dL (0.6-1.0); GFR 44.4
--- NOTE | 2019-01-19 08:10 | PDOC ---
CARDIO Progress Notes Date & Time Date of Service DATE: 01/19/19 TIME: 08:07 Time of Evaluation 08:07 Vitals Vitals Vital Signs Date Time Temp Pulse Resp B/P (MAP) Pulse Ox O2 Delivery O2 Flow Rate FiO2 01/19/19 05:06 97.8 78 18 105/67 (80) 92 Room Air 01/18/19 05:27 1.0 Weight Weight [ ] Input and Output I.O. Intake and Output 01/19/19 07:00 Intake Total 3399.57 ml Balance 3399.57 ml Intake Oral 990 ml IV Total 2409.57 ml # Voids 6 Laboratory Labs Laboratory Tests Test 01/17/19 09:15 01/17/19 17:35 01/18/19 10:55 01/19/19 06:26 D-Dimer (Kassi) 1.31 mg/L (0.00-0.50) Troponin I Quantitative < 0.017 ng/mL (0-0.055) < 0.017 ng/mL (0-0.055) White Blood Count 7.6 x10^3/uL (4.0-11.0) Red Blood Count 3.25 x10^6/uL (3.50-5.40) Hemoglobin 11.2 g/dL (12.0-15.5) Hematocrit 33.3 % (36.0-47.0) Mean Corpuscular Volume 102 fL (79-100) Mean Corpuscular Hemoglobin 34 pg (25-35) Mean Corpuscular Hemoglobin Concent 34 g/dL (31-37) Red Cell Distribution Width 14.2 % (11.5-14.5) Platelet Count 130 x10^3/uL (140-400) Sodium Level 138 mmol/L (136-145) 139 mmol/L (136-145) Potassium Level 3.4 mmol/L (3.5-5.1) 4.0 mmol/L (3.5-5.1) Chloride Level 107 mmol/L (98-107) 110 mmol/L (98-107) Carbon Dioxide Level 21 mmol/L (21-32) 21 mmol/L (21-32) Anion Gap 10 (6-14) 8 (6-14) Blood Urea Nitrogen 13 mg/dL (7-20) 11 mg/dL (7-20) Creatinine 1.4 mg/dL (0.6-1.0) 1.2 mg/dL (0.6-1.0) Estimated GFR (Cockcroft-Gault) 37.2 44.4 Glucose Level 119 mg/dL (70-99) 85 mg/dL (70-99) Calcium Level 8.3 mg/dL (8.5-10.1) 7.9 mg/dL (8.5-10.1) Magnesium Level 1.4 mg/dL (1.8-2.4) 2.2 mg/dL (1.8-2.4) Microbiology Micro Microbiology 01/15/19 Urine Culture - Final, Complete 01/15/19 Urine Culture Result 1 (CHARO) - Final, Complete 01/15/19 Antimicrobic Susceptibility - Final, Complete Physical Exams HEENT: Neck Supple W Full Motion Chest: Symmetric Lungs: Clear to Auscultation Heart: S1S2, RRR Abdomen: Soft N/T Extremities: No Edema Neurology: alert, follow commands Assessment Assessment 1. Weakness, mechanical fall 2. Persistent nausea/vomiting 3. Alcoholism; 1 pint whiskey daily 4. Seizure disorder; on Keppra 5. Chest pain, atypical. Troponin negative x2- AMI ruled out. Most probably GI in nature. Echo showed preserved LV systolic function with an EF of 60-65% 6. Hypertension; controlled 7. Hypokalemia, hypomagnesemia; replaced 8. CKD 9. GERD 10. Hyperlipidemia; LDL 137 Recommendations Add low dose statin Monitor lytes, replace as warranted Abstain from ETOH. Withdrawal as per PCP Supportive care Consider outpatient ischemic evaluation SAMMIE MONREAL APRN Jan 19, 2019 08:10
[2019-01-19] MEDS: busPIRone 15 MG TABLET. PO SCH ×2 (08:57→20:45)
[2019-01-19] MEDS: MAGNESIUM OXIDE 400 MG TABLET PO SCH ×2 (08:58→20:45)
[2019-01-19] MEDS: LACTOBACILLUS RHAMNOSUS GG 1 CAPSULE. PO SCH ×2 (08:58→20:45)
[2019-01-19] MEDS: amLODIPine BESYLATE 10 MG TABLET PO SCH (08:58)
[2019-01-19] MEDS: ALLOPURINOL 100 MG TABLET. PO SCH (08:58)
[2019-01-19] MEDS: CITALOPRAM 20 MG TABLET. PO SCH (08:58)
[2019-01-19] MEDS: levETIRAcetam 500 MG TABLET PO SCH ×2 (08:58→20:45)
[2019-01-19] MEDS: POTASSIUM CHLORIDE 20 MEQ TABLET.ER. PO SCH (08:59)
[2019-01-19] MEDS: FOLIC ACID 1 MG TABLET PO SCH (08:59)
[2019-01-19] MEDS: THIAMINE 100 MG TABLET. PO SCH (08:59)
[2019-01-19] MEDS: MULTIVITAMIN with MINERAL TABLET. PO SCH (08:59)
[2019-01-19] MEDS: MIRABEGRON 25 MG TAB.ER.24H PO SCH (09:03)
[2019-01-19 11:11] VITALS: BP 118/77
--- NOTE | 2019-01-19 12:59 | EKG ---
[address] [address] Test Date: 2019-01-17 Test Time: 12:34:36 Pat Name: DIAN RAMOS Department: Room: 109 A Gender: F National Recruiter: GUILLERMO : 1950 Requested By: ESPERANZA OBREGON Order Number: [id number] Reading MD: Measurements Intervals [place] Rate: 101 P: -2 TX: 136 QRS: -2 QRSD: 82 T: 55 QT: 344 QTc: 453 Interpretive Statements SINUS TACHYCARDIA LEFTWARD AXIS OTHERWISE NORMAL ECG RI6.02 No previous ECG available for comparison
[2019-01-19] MEDS ORDERED: LORazepam 1 MG TABLET PO PRN (15:15)
[2019-01-19 15:21] VITALS: BP 124/77
[2019-01-19] MEDS: ONDANSETRON ODT 4 MG TAB.RAPDIS PO PRN (15:24)
[2019-01-19] MEDS: CEFDINIR 300 MG CAPSULE PO SCH ×2 (15:24→20:45)
[2019-01-19 19:55] VITALS: BP 116/73
[2019-01-19] MEDS: ATORVASTATIN CALCIUM 10 MG TABLET. PO SCH (20:45)
--- NOTE | 2019-01-19 21:51 | PDOC ---
Exam Note: Huber Note: Please also refer to the separate dictated note~for this date of service dictated separately.~Patient seen individually. Discussed the patient with Nursing staff reviewed the chart.~Reviewed interim history and current functioning. Reviewed vital signs,~Labs/ Radiology~and current medications noted below. Continue current treatment with the changes noted in the dictated addendum note Assessment: Vital Signs/I&O: Vital Signs Date Time Temp Pulse Resp B/P (MAP) Pulse Ox O2 Delivery O2 Flow Rate FiO2 01/19/19 19:55 97.7 77 18 116/73 (87) 97 Room Air 01/18/19 05:27 1.0 I & O 01/18/19 01/18/19 01/19/19 14:59 22:59 06:59 Intake Total 2051.2 ml 250 ml 1098.37 ml Balance 2051.2 ml 250 ml 1098.37 ml Labs: Laboratory Tests Test 01/19/19 06:26 Sodium Level 139 mmol/L (136-145) Potassium Level 4.0 mmol/L (3.5-5.1) Chloride Level 110 mmol/L (98-107) H Carbon Dioxide Level 21 mmol/L (21-32) Anion Gap 8 (6-14) Blood Urea Nitrogen 11 mg/dL (7-20) Creatinine 1.2 mg/dL (0.6-1.0) H Estimated GFR (Cockcroft-Gault) 44.4 Glucose Level 85 mg/dL (70-99) Calcium Level 7.9 mg/dL (8.5-10.1) L Magnesium Level 2.2 mg/dL (1.8-2.4) Current Medications: Meds: Current Medications Medications (Trade) Dose Ordered Sig/Onur Route PRN Reason Start Time Stop Time Status Last Admin Dose Admin Ondansetron HCl (Zofran Odt) 4 mg PRN Q8HRS PRN PO NAUSEA/VOMITING 01/18/19 22:00 01/19/19 15:24 Multivitamins/ Calcium (Thera-M Plus) 1 tab DAILY PO 01/19/19 09:00 01/19/19 09:01 Folic Acid (Folic Acid) 1 mg DAILY PO 01/19/19 09:00 01/19/19 09:01 Thiamine HCl (Vitamin B-1) 100 mg DAILY PO 01/19/19 09:00 01/19/19 09:01 Atorvastatin Calcium (Lipitor) 10 mg QHS PO 01/19/19 21:00 01/19/19 20:46 Cefdinir (Omnicef) 300 mg BID PO 01/19/19 15:00 01/19/19 20:46 Lorazepam (Ativan) 1 mg PRN Q6HRS PRN PO ANXIETY / AGITATION 01/19/19 15:15 01/19/19 15:24 I have reviewed the current psychotropics carefully including drug interactions. Risk benefit ratio favors no change other than as noted in my dictated progress note. Diagnosis: Problems: (1) Major depressive disorder, recurrent episode (2) Anxiety disorder (3) Seizure disorder DASHA GIBSON MD Jan 19, 2019 21:51
--- NOTE | 2019-01-19 23:55 | PN ---
DATE: 01/19/2019 SUBJECTIVE: The patient is resting, slightly propped up in bed, in no apparent respiratory distress. She is sleepy, but arousable. She apparently has been participating with physical therapy. He has also been able to walk to and from the bathroom. Her urine culture has grown more than 100,000 colony forming units per mL of Escherichia coli sensitive to all cephalosporins. Her lab work also showed that her kidney function has steadily improved from 1.7 to 1.2. PHYSICAL EXAMINATION: GENERAL: When I examined her this afternoon, she looked well and was clearly in no apparent respiratory distress. No pallor, jaundice, cyanosis or thyromegaly. No jugular venous distension. No limb edema. VITAL SIGNS: Her heart rate was 81, blood pressure was 118/77, temperature was 97.8, respiratory rate 20, and oxygen saturation was 96%. HEAD, EYES, EARS, NOSE AND THROAT: Showed normocephalic, atraumatic. NECK: Supple. HEART: Showed normal first and second heart sounds with no gallop, rub or murmur. CHEST: Clear to auscultation. No crepitation or rhonchi. ABDOMEN: Distended, soft, nontender. No guarding or rigidity. No organomegaly. All hernial orifice intact. Bowel sounds normal. NEUROLOGIC: She was awake, alert, responding appropriately. All cranial nerves intact. She moves extremities without difficulty. She ambulates with a walker. Her intake over the last 24 hours and output were incompletely recorded. LABORATORY DATA: Her lab work this morning showed a serum sodium 139, potassium 4, chloride 110, bicarbonate 21, anion gap of 8, BUN 11, creatinine 1.2, estimated GFR was 44 mL per minute. Her glucose was 85, calcium was 7.9, magnesium was 2.2. ASSESSMENT: 1. Recurrent bouts of nausea, vomiting, diarrhea, profound weakness, resolved. 2. Acute on chronic kidney injury, improving. Her creatinine is down from 1.7 to 1.2. Hypertension is much better controlled. 3. Hyperlipidemia. 4. Generalized osteoarthritis. 5. She has seizure disorder for which she is on Keppra. 6. Recurrent episode of chest pain 3 sets of cardiac enzymes, ruled out myocardial infarction. Echocardiogram showed she has normal left ventricular systolic function, ejection fraction of 60-65%. 7. She has elevated D-dimer with chest pain; however, her pulmonary perfusion ventilation scan was read as low probability. 8. Alcoholism, for which she is on alcohol withdrawal protocol. PLAN: To continue with IV fluid, continue with IV banana bag. I will discontinue her ceftriaxone, switch her to cefdinir 300 mg twice a day. We will consult the social media analyst to arrange for her to be discharged to a retirement facility or rehab center for further rehabilitation. ESPERANZA OBREGON MD DR: RANJANA/jesika JOB#: [id number] / [id number]
[2019-01-20 00:15] VITALS: BP 136/81
[2019-01-20] MEDS: NITROGLYCERIN OINT 1 GM PACKET. TP SCH ×4 (06:00→20:19)
--- NOTE | 2019-01-20 06:22 | PN ---
DATE: 01/18/2019 PSYCHIATRIC PROGRESS NOTE This late entry 01/18/2019 covers elements not covered in my initial note. SUBJECTIVE: I met with the patient evening of 01/18/2019 in her room. The patient has been depressed, withdrawn, insistent that she needs to return home. Given the circumstances prompting admission, more structured placement arrangements are being coordinated with her family and the patient resents this. She wants the caseworker protective services to directly communicate with her on this. I did have a lengthy discussion with her about the need for further rehabilitation and strengthening before making a decision on her placement. She is fearful that her house would be sold from under her. REVIEW OF SYSTEMS: Positive for tiredness, impaired ambulation. No CV, , pulmonary, eye system symptoms on review. MENTAL STATUS EXAM: Reasonably oriented. Speech is coherent, abstraction fair, computation impaired, language function intact. Mood and affect is depressed. LABORATORY DATA: Reviewed. IMPRESSION: Major depressive disorder, alcohol abuse and dependence, urinary tract infection, weakness. Rest unchanged from initial note. PLAN: From a psychiatric standpoint, the patient is on BuSpar 15 mg twice a day, Librium p.r.n. for alcohol withdrawal, Celexa 40 mg a day, B1 supplement. We will go ahead and change the Celexa to Cymbalta 30 mg a day, increase gradually; consider augmentation with Wellbutrin. The patient does need a more structured placement than returning home at this time, and we will defer for the Case Management to communicate this with the patient directly. DASHA GIBSON MD DR: DONNA/jesika JOB#: [id number] / [id number]
[2019-01-20 06:33] VITALS: BP 151/77
[2019-01-20] MEDS: IV NORMAL SALINE 1,000ML 1,000 ML IV SCH ×2 (07:18→15:12)
[2019-01-20] MEDS ORDERED: DULoxetine HCL 30 MG CAPSULE.DR PO SCH (09:00)
[2019-01-20] MEDS: busPIRone 15 MG TABLET. PO SCH ×2 (09:15→20:18)
[2019-01-20] MEDS: amLODIPine BESYLATE 10 MG TABLET PO SCH (09:15)
[2019-01-20] MEDS: FOLIC ACID 1 MG TABLET PO SCH (09:15)
[2019-01-20] MEDS: LACTOBACILLUS RHAMNOSUS GG 1 CAPSULE. PO SCH ×2 (09:15→20:18)
[2019-01-20] MEDS: MAGNESIUM OXIDE 400 MG TABLET PO SCH (09:15)
[2019-01-20] MEDS: ALLOPURINOL 100 MG TABLET. PO SCH (09:15)
[2019-01-20] MEDS: CEFDINIR 300 MG CAPSULE PO SCH ×2 (09:15→20:18)
[2019-01-20] MEDS: MULTIVITAMIN with MINERAL TABLET. PO SCH (09:15)
[2019-01-20] MEDS: THIAMINE 100 MG TABLET. PO SCH (09:15)
[2019-01-20] MEDS: POTASSIUM CHLORIDE 20 MEQ TABLET.ER. PO SCH (09:15)
[2019-01-20] MEDS: MIRABEGRON 25 MG TAB.ER.24H PO SCH (09:16)
[2019-01-20] MEDS: levETIRAcetam 500 MG TABLET PO SCH ×2 (09:23→20:18)
[2019-01-20 10:36] LABS: CALCIUM 8.3 mg/dL (8.5-10.1); CREATININE 1.4 mg/dL (0.6-1.0); GFR 37.2; POTASSIUM 4.8 mmol/L (3.5-5.1)
[2019-01-20 10:41] VITALS: BP 132/80
[2019-01-20 15:34] VITALS: BP 122/72
--- NOTE | 2019-01-20 18:42 | PDOC ---
Exam Note: Huber Note: Please also refer to the separate dictated note~for this date of service dictated separately.~Patient seen individually. Discussed the patient with Nursing staff reviewed the chart.~Reviewed interim history and current functioning. Reviewed vital signs,~Labs/ Radiology~and current medications noted below. Continue current treatment with the changes noted in the dictated addendum note Assessment: Vital Signs/I&O: Vital Signs Date Time Temp Pulse Resp B/P (MAP) Pulse Ox O2 Delivery O2 Flow Rate FiO2 01/20/19 15:34 98.1 73 20 122/72 (89) 94 Room Air 01/18/19 05:27 1.0 I & O 01/19/19 01/19/19 01/20/19 15:00 23:00 07:00 Intake Total 780 ml 300 ml Balance 780 ml 300 ml Labs: Laboratory Tests Test 01/20/19 03:08 01/20/19 10:09 Clostridioides difficile Toxin B Gene Negative (Negative) Sodium Level 136 mmol/L (136-145) Potassium Level 4.8 mmol/L (3.5-5.1) Chloride Level 106 mmol/L (98-107) Carbon Dioxide Level 23 mmol/L (21-32) Anion Gap 7 (6-14) Blood Urea Nitrogen 8 mg/dL (7-20) Creatinine 1.4 mg/dL (0.6-1.0) H Estimated GFR (Cockcroft-Gault) 37.2 Glucose Level 85 mg/dL (70-99) Calcium Level 8.3 mg/dL (8.5-10.1) L Current Medications: Meds: Current Medications Medications (Trade) Dose Ordered Sig/Onur Route PRN Reason Start Time Stop Time Status Last Admin Dose Admin Atorvastatin Calcium (Lipitor) 10 mg QHS PO 01/19/19 21:00 01/19/19 20:46 Duloxetine HCl (Cymbalta) 30 mg DAILY PO 01/20/19 09:00 01/20/19 09:16 I have reviewed the current psychotropics carefully including drug interactions. Risk benefit ratio favors no change other than as noted in my dictated progress note. Diagnosis: Problems: (1) Alcohol dependence (2) Major depressive disorder, recurrent episode (3) Anxiety disorder (4) Seizure disorder DASHA GIBSON MD Jan 20, 2019 18:42
[2019-01-20 19:18] VITALS: BP 163/94
[2019-01-20] MEDS: ATORVASTATIN CALCIUM 10 MG TABLET. PO SCH (20:18)
[2019-01-20] MEDS ORDERED: LACTOBACILLUS RHAMNOSUS GG 1 CAPSULE. PO SCH (21:00)
--- NOTE | 2019-01-20 22:58 | PN ---
DATE: 01/19/2019 PSYCHIATRIC PROGRESS NOTE This late entry 01/19/2019 covers elements not covered in my initial note. SUBJECTIVE: I met with the patient evening of 01/19/2019. The patient remains somewhat depressed, withdrawn. She was little more animated, talking about going to a rehab facility on 01/20/2019. Nursing staff are unaware of the details; however. The patient is willing to do this. REVIEW OF SYSTEMS: Impaired ambulation. No CV, , pulmonary, eye system symptoms on review. MENTAL STATUS EXAMINATION: The patient is reasonably oriented. Speech is coherent, abstraction fair, computation impaired, language function intact, attention span short. Mood and affect is withdrawn, depressed. We talked about her alcohol usage and avoiding any alcohol use whatsoever. She states she has decided to do this. No active suicidal ideation. IMPRESSION: Major depressive disorder, recurrent; alcohol abuse dependence, anxiety disorder, unspecified, general medical diagnosis as previously. PLAN: No change from a psychiatric standpoint from initial note. The patient should have psychiatric followup when she is transitioned to the [facility] care. She will need a more structured placement after that treatment is completed. DASHA GIBSON MD DR: DONNA/jesika JOB#: [id number] / [id number]
[2019-01-20 23:09] VITALS: BP 144/89
--- NOTE | 2019-01-20 23:14 | PN ---
DATE: 01/20/2019 SUBJECTIVE: The patient is resting flat, comfortably in bed, no apparent distress. She complained that she has not been able to sleep, has been in and out. She has been having diarrhea. She apparently has 3-4 episodes of watery stool last night and 2 episodes at least this morning. PHYSICAL EXAMINATION: GENERAL: When I examined her, she looked pale, but no jaundice, cyanosis or thyromegaly. No jugular venous distention. No lower limb edema. VITAL SIGNS: Her heart rate was 79, blood pressure was 132/80, temperature was 98.1, respiratory rate was 18 and oxygen saturation was 95%. HEAD, EYES, EARS, NOSE AND THROAT: Normocephalic, atraumatic. NECK: Supple. HEART: Showed normal first and second heart sounds with no gallop, rub or murmur. CHEST: Clear to auscultation. No crepitation or rhonchi. ABDOMEN: Scaphoid, soft, nontender. No guarding or rigidity. No organomegaly. All hernial orifice intact. Bowel sounds normal. NEUROLOGIC: She was awake, alert, responding appropriately. All cranial nerves intact. She moves extremities without difficulty. She ambulates with a walker and worked with physical therapy. Her intake over the last 24 hours was 3400, no output was recorded. LABORATORY DATA: Her lab work this morning showed a white cell count 7600, hemoglobin 11, hematocrit 33, MCV 102 and platelet count of 130,000. Her chemistry showed a serum sodium 136, potassium 4.8, chloride 106, bicarbonate 23, anion gap of 7, BUN 8, creatinine 1.4, estimated GFR was 37 mL per minute. Her glucose was 85, calcium was 8.3. Her urine culture has grown more than 100,000 colony forming units per mL of Escherichia coli sensitive to cephalosporins and she is now on oral cefdinir. ASSESSMENT: 1. Recurrent bouts of nausea, vomiting, diarrhea, profound weakness, resolved. 2. Acute on chronic kidney injury, improved. His creatinine is down from 1.7 to 1.4. 3. Hypertension, much better controlled. 4. Hyperlipidemia. 5. Generalized osteoarthritis. 6. Seizure disorder for which he is on Keppra. 7. Recurrent episode of chest pain, which she has 3 sets of cardiac enzymes that ruled out myocardial infarction. Echocardiogram showed she has normal left ventricular systolic function, normal ejection fraction of 60-65%. 8. She has elevated D-dimer with chest pain; however, her pulmonary perfusion ventilation scan was read as low probability. 9. Alcoholism, for which she is on alcohol withdrawal protocol. 10. Diarrhea for which stool was sent for C. diff toxins. 11. Urinary tract infection with growth of more than 100,000 colony forming units per mL of Escherichia coli, for which she is now on oral cefdinir. If the C. diff toxins were negative, the patient can be discharged to a [facility] facility. ESPERANZA OBREGON MD DR: RANJANA/jesika JOB#: [id number] / [id number]
[2019-01-21] MEDS: IV NORMAL SALINE 1,000ML 1,000 ML IV SCH ×3 (02:40→20:00)
[2019-01-21 05:32] VITALS: BP 102/62
[2019-01-21] MEDS: POTASSIUM CHLORIDE 20 MEQ TABLET.ER. PO SCH (08:00)
[2019-01-21] MEDS: FOLIC ACID 1 MG TABLET PO SCH (10:15)
[2019-01-21] MEDS: CEFDINIR 300 MG CAPSULE PO SCH ×2 (10:15→21:01)
[2019-01-21] MEDS: ARIPiprazole 5 MG TABLET PO SCH (10:15)
[2019-01-21] MEDS: levETIRAcetam 500 MG TABLET PO SCH ×2 (10:15→21:01)
[2019-01-21] MEDS: ALLOPURINOL 100 MG TABLET. PO SCH (10:15)
[2019-01-21] MEDS: THIAMINE 100 MG TABLET. PO SCH (10:15)
[2019-01-21] MEDS: LACTOBACILLUS RHAMNOSUS GG 1 CAPSULE. PO SCH ×2 (10:15→21:01)
[2019-01-21] MEDS: MIRABEGRON 25 MG TAB.ER.24H PO SCH (10:16)
[2019-01-21] MEDS: busPIRone 15 MG TABLET. PO SCH ×2 (10:16→21:01)
[2019-01-21] MEDS: amLODIPine BESYLATE 10 MG TABLET PO SCH (10:16)
[2019-01-21] MEDS: DULoxetine HCL 60 MG CAPSULE.DR PO SCH (10:16)
[2019-01-21] MEDS: MULTIVITAMIN with MINERAL TABLET. PO SCH (10:16)
[2019-01-21 10:46] VITALS: BP 151/75
--- NOTE | 2019-01-21 14:42 | PN ---
DATE: 01/21/2019 SUBJECTIVE: The patient is sitting comfortably in her chair, in no apparent distress. On questioning her, denied any further episodes of chest pain, has had no further episodes of diarrhea. Her stool for C. diff toxins were negative. Apparently, she has been depressed and expressed to have suicidal ideation, although she vehemently denied any suicidal ideation and intent to harm herself or plans to do that. PHYSICAL EXAMINATION: GENERAL: When I examined her this morning, she was sitting comfortably in her chair, in no apparent distress. She was pale, but no jaundice or cyanosis. No lymphadenopathy, no thyromegaly. No jugular venous distention. No limb edema. VITAL SIGNS: Her heart rate was 75, blood pressure 151/75, temperature was 97.4, respiratory rate 20, and oxygen saturation was 92% on room air. HEAD, EYES, EARS, NOSE, AND THROAT: Normocephalic, atraumatic. NECK: Supple. HEART: Showed normal first and second heart sounds. No gallop, rub, or murmur. CHEST: Clear to auscultation. No crepitation or rhonchi. ABDOMEN: Distended, soft, nontender. No guarding or rigidity. No organomegaly. All hernial orifice intact. Bowel sounds normal. NEUROLOGIC: She was awake, alert, responding appropriately. All cranial nerves intact. She moves extremities without difficulty. She ambulates without assistance or assistive devices. Her intake was 1100, no output was recorded. LABORATORY DATA: Her lab work this morning showed that her serum sodium was 136, potassium 4.8, chloride 106, bicarbonate 23, anion gap of 7, BUN 8, creatinine 1.4, estimated GFR was 37 mL per minute. Her glucose was 85, calcium was 8.3. PLAN: Given that she has been unable to take care of herself and her family are concerned that she would go home and go back and continue drinking, a decision was made to pursue discharge to a [facility] facility to continue the process of rehabilitation there before she can go home. ASSESSMENT: 1. Recurrent bouts of nausea, vomiting, diarrhea and profound weakness, mostly resolved. 2. Her acute kidney injury improved. Her creatinine is down to 1.4. 3. Hypertension, much better controlled. 4. Hyperlipidemia. 5. Generalized osteoarthritis. 6. Seizure disorder for which she is on Keppra. 7. Recurrent episode of chest pain for which she has 3 sets of cardiac enzymes that ruled out myocardial infarction. Echocardiogram showed that she has normal left ventricular systolic function with normal ejection fraction of 60-65%. 8. She has elevated D-dimer with chest pain; however, her pulmonary perfusion-ventilation scan was read as low probability. 9. Alcoholism, for which she is on alcohol withdrawal protocol. 10. Diarrhea; however, her stool was for C. diff toxins were negative. 11. Urinary tract infection with growth of more than 100,000 colony forming units per mL of Escherichia coli sensitive to cephalosporins. She is now on oral cefdinir. 12. Depression and suicidal ideation, although the patient denied that. We did consult Dr. Samson. I will also inform him about the new development of this suicidal ideation. ESPERANZA OBREGON MD DR: RANJANA/jesika JOB#: [id number] / [id number]
[2019-01-21 15:14] VITALS: BP 128/68
--- NOTE | 2019-01-21 19:03 | PDOC ---
Exam Note: Huber Note: Please also refer to the separate dictated note~for this date of service dictated separately.~Patient seen individually. Discussed the patient with Nursing staff reviewed the chart.~Reviewed interim history and current functioning. Reviewed vital signs,~Labs/ Radiology~and current medications noted below. Continue current treatment with the changes noted in the dictated addendum note Assessment: Vital Signs/I&O: Vital Signs Date Time Temp Pulse Resp B/P (MAP) Pulse Ox O2 Delivery O2 Flow Rate FiO2 01/21/19 15:14 97.8 84 20 128/68 (88) 98 Room Air 01/18/19 05:27 1.0 I & O 01/20/19 01/20/19 01/21/19 15:00 23:00 07:00 Intake Total 120 ml 120 ml 1954 ml Balance 120 ml 120 ml 1954 ml Current Medications: Meds: Current Medications Medications (Trade) Dose Ordered Sig/Onur Route PRN Reason Start Time Stop Time Status Last Admin Dose Admin Duloxetine HCl (Cymbalta) 60 mg DAILY PO 01/21/19 09:00 01/21/19 10:16 Aripiprazole (Abilify) 5 mg DAILY PO 01/21/19 09:00 01/21/19 10:16 I have reviewed the current psychotropics carefully including drug interactions. Risk benefit ratio favors no change other than as noted in my dictated progress note. Diagnosis: Problems: (1) Anxiety disorder (2) Major depressive disorder, recurrent episode (3) Alcohol dependence DASHA GIBSON MD Jan 21, 2019 19:03
[2019-01-21 19:08] VITALS: BP 149/99
[2019-01-21] MEDS: CALCIUM CARBONATE 500 MG TAB.CHEW PO PRN (19:58)
[2019-01-21] MEDS: ONDANSETRON ODT 4 MG TAB.RAPDIS PO PRN (21:00)
[2019-01-21] MEDS: ATORVASTATIN CALCIUM 10 MG TABLET. PO SCH (21:01)
[2019-01-21 23:10] VITALS: BP 126/69
[2019-01-22] MEDS: IV NORMAL SALINE 1,000ML 1,000 ML IV SCH ×2 (04:05→15:57)
[2019-01-22 05:03] VITALS: BP 145/76
--- NOTE | 2019-01-22 05:25 | NUR ---
Pt pleasant and cooperative. She has had two episodes of nausea and vomiting. Zofran and beverly yolanda given. Pt states,"I am feeling much better than I did last weekend."
[2019-01-22] MEDS: ARIPiprazole 5 MG TABLET PO SCH (07:58)
[2019-01-22] MEDS: busPIRone 15 MG TABLET. PO SCH ×3 (07:58→21:00)
[2019-01-22] MEDS: MULTIVITAMIN with MINERAL TABLET. PO SCH (07:58)
[2019-01-22] MEDS: CEFDINIR 300 MG CAPSULE PO SCH ×3 (07:58→21:00)
[2019-01-22] MEDS: FOLIC ACID 1 MG TABLET PO SCH (07:58)
[2019-01-22] MEDS: levETIRAcetam 500 MG TABLET PO SCH ×3 (07:58→21:00)
[2019-01-22] MEDS: ALLOPURINOL 100 MG TABLET. PO SCH (07:58)
[2019-01-22] MEDS: LACTOBACILLUS RHAMNOSUS GG 1 CAPSULE. PO SCH ×3 (07:58→21:00)
[2019-01-22] MEDS: ONDANSETRON ODT 4 MG TAB.RAPDIS PO PRN ×2 (07:58→16:10)
[2019-01-22] MEDS: DULoxetine HCL 60 MG CAPSULE.DR PO SCH (07:58)
[2019-01-22] MEDS: amLODIPine BESYLATE 10 MG TABLET PO SCH (07:59)
[2019-01-22] MEDS: THIAMINE 100 MG TABLET. PO SCH (07:59)
[2019-01-22] MEDS: POTASSIUM CHLORIDE 20 MEQ TABLET.ER. PO SCH (07:59)
[2019-01-22] MEDS: MIRABEGRON 25 MG TAB.ER.24H PO SCH (08:03)
[2019-01-22 11:04] VITALS: BP 122/71
[2019-01-22 15:31] VITALS: BP 137/79
[2019-01-22] MEDS ORDERED: METOCLOPRAMIDE HCL 10 MG/2 ML VIAL. IV PRN (18:15)
[2019-01-22] MEDS: CALCIUM CARBONATE 500 MG TAB.CHEW PO PRN (19:47)
[2019-01-22 20:09] VITALS: BP 171/91
--- NOTE | 2019-01-22 20:22 | PDOC ---
Exam Note: Huber Note: Please also refer to the separate dictated note~for this date of service dictated separately.~Patient seen individually. Discussed the patient with Nursing staff reviewed the chart.~Reviewed interim history and current functioning. Reviewed vital signs,~Labs/ Radiology~and current medications noted below. Continue current treatment with the changes noted in the dictated addendum note Assessment: Vital Signs/I&O: Vital Signs Date Time Temp Pulse Resp B/P (MAP) Pulse Ox O2 Delivery O2 Flow Rate FiO2 01/22/19 20:09 97.7 79 18 171/91 (117) 96 Room Air 01/18/19 05:27 1.0 I & O 01/21/19 01/21/19 01/22/19 15:00 23:00 07:00 Intake Total 240 ml 360 ml 629.25 ml Output Total 350 ml Balance 240 ml 10 ml 629.25 ml Current Medications: Meds: Current Medications Medications (Trade) Dose Ordered Sig/Onur Route PRN Reason Start Time Stop Time Status Last Admin Dose Admin Metoclopramide HCl (Reglan Vial) 10 mg PRN Q6HRS PRN IV NAUSEA/VOMITING 01/22/19 18:15 01/22/19 19:48 I have reviewed the current psychotropics carefully including drug interactions. Risk benefit ratio favors no change other than as noted in my dictated progress note. Diagnosis: Problems: (1) Alcohol dependence (2) Acute on chronic renal failure (3) Major depressive disorder, recurrent episode (4) Anxiety disorder (5) Weakness DASHA GIBSON MD Jan 22, 2019 20:22
[2019-01-22] MEDS: ATORVASTATIN CALCIUM 10 MG TABLET. PO SCH ×2 (20:48→21:00)
--- NOTE | 2019-01-22 21:14 | PN ---
DATE: 01/21/2019 PSYCHIATRIC PROGRESS NOTE This late entry 01/21/2019, covers the elements not covered in my initial note. SUBJECTIVE: I met with the patient in the evening of 01/21/2019. Discussed with nursing staff, reviewed the chart. Overall, the patient has been more animated, verbal, interactive. Subjectively, she states she feels better. She is still wanting to get back home, but talked at length about staying away from alcohol. She believes her brother is already removed alcohol and she intends not getting any more. She tried to explain away her alcohol abuse with the stress from 2 divorces. She related her first marriage is very good, lasting a long time, but then her second marriage was to "loser as that is how the patient's father described him". Reportedly, she knew him from high school that is the reason him, but it only lasted 1 year. 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 She was brighter, more verbal, more animated during the visit. REVIEW OF SYSTEMS: Ambulation impaired. No CV, , pulmonary, eye system symptoms on review. MENTAL STATUS EXAM: Oriented reasonably. Speech is coherent, abstraction fair, computation impaired, language function intact. Mood and affect is improved. LABORATORY DATA: Reviewed. No suicidal ideation. IMPRESSION: Unchanged from initial note. PLAN: No change from initial note. Cymbalta has been increased and Abilify added to augment the Cymbalta. Rest unchanged for now. MAN Tom GIBSON MD DR: DONNA/jesika JOB#: [id number] / [id number]
[2019-01-23] MEDS: IV NORMAL SALINE 1,000ML 1,000 ML IV SCH ×2 (02:00→10:19)
--- NOTE | 2019-01-23 03:33 | PN ---
DATE: 01/22/2019 SUBJECTIVE: The patient is sitting comfortably in her chair, in no apparent distress. She has had no further episodes of nausea, vomiting, no diarrhea, no chest pain, has been managing to get out of the bed to the bathroom without assistance; however, she requires a walker to walk long distances, and continue to be somewhat weak and debilitated. PHYSICAL EXAMINATION: GENERAL: When I examined her, however, she looked pale, but no jaundice, cyanosis or thyromegaly. No jugular venous distention. No limb edema. VITAL SIGNS: Her heart rate was 67, blood pressure was 122/71, temperature was 97.9, respiratory rate 20, and oxygen saturation was 96%. HEAD, EYES, EARS, NOSE AND THROAT: Showed normocephalic, atraumatic. NECK: Supple. HEART: Showed normal first and second heart sounds. No gallop, rub or murmur. CHEST: Clear to auscultation. No crepitation or rhonchi. ABDOMEN: Distended, soft, nontender. No guarding or rigidity. No organomegaly. All hernial orifice intact. Bowel sounds normal. NEUROLOGIC: She is definitely more awake, alert, responding appropriately. All her cranial nerves are intact. She moves extremities without difficulty, although she obviously continues to be debilitated and weak. Her intake was 1200, no output was recorded. LABORATORY DATA: Her most recent lab work showed a serum sodium 136, potassium 4.8, chloride 106, bicarbonate 23, anion gap of 7, BUN 8, creatinine 1.4, estimated GFR was 37 mL per minute, glucose was 85, calcium was 8.3. White cell count was 7600, hemoglobin 11, hematocrit 33, MCV 102, and platelet count of 130,000. ASSESSMENT: 1. Recurrent bouts of nausea, vomiting, diarrhea and profound weakness, mostly resolved. 2. Acute kidney injury, improved. Her creatinine is down to 1.4. 3. Hypertension, much better controlled. 4. Hyperlipidemia. 5. Generalized osteoarthritis. 6. Seizure disorder for which she is on Keppra. 7. Recurrent episodes of chest pain for which she has 3 sets of cardiac enzymes that ruled out myocardial infarction. An echocardiogram showed that she has normal left ventricular systolic function, normal ejection fraction of 60-65%. 8. She has elevated D-dimer with chest pain; however, her pulmonary perfusion ventilation scan read as low probability. 9. Alcoholism for which she is on alcohol withdrawal protocol. 10. Diarrhea; however, her stool was negative for C. diff toxins. 11. Urinary tract infection with growth of Escherichia coli sensitive to cephalosporin. She is now on cefdinir. 12. Depression and suicidal ideation, although the patient ____ that she was seen by Dr. Samson who did not change any of her medication for the time being. Obviously given that she continue to be debilitated and weak, we will arrange for her to be discharged to a [facility] facility to continue the process of rehabilitation there. ESPERANZA OBREGON MD DR: RANJANA/jesika JOB#: [id number] / [id number]
[2019-01-23 05:44] VITALS: BP 152/83
[2019-01-23 06:28] LABS: HEMATOCRIT 31.3 % (36.0-47.0); HEMOGLOBIN 10.6 g/dL (12.0-15.5); RED BLOOD COUNT 3.08 x10^6/uL (3.50-5.40); RED CELL DISTRIBUTION WIDTH 14.3 % (11.5-14.5); WHITE BLOOD COUNT 7.1 x10^3/uL (4.0-11.0)
[2019-01-23 06:31] LABS: CALCIUM 8.7 mg/dL (8.5-10.1); CREATININE 1.3 mg/dL (0.6-1.0); GFR 40.5; POTASSIUM 4.5 mmol/L (3.5-5.1)
[2019-01-23] MEDS: levETIRAcetam 500 MG TABLET PO SCH (09:10)
[2019-01-23] MEDS: CEFDINIR 300 MG CAPSULE PO SCH (09:10)
[2019-01-23] MEDS: LACTOBACILLUS RHAMNOSUS GG 1 CAPSULE. PO SCH (09:10)
[2019-01-23] MEDS: busPIRone 15 MG TABLET. PO SCH (09:10)
[2019-01-23] MEDS: MIRABEGRON 25 MG TAB.ER.24H PO SCH (09:11)
[2019-01-23] MEDS: ARIPiprazole 5 MG TABLET PO SCH (09:14)
[2019-01-23] MEDS: POTASSIUM CHLORIDE 20 MEQ TABLET.ER. PO SCH (09:14)
[2019-01-23] MEDS: THIAMINE 100 MG TABLET. PO SCH (09:15)
[2019-01-23] MEDS: FOLIC ACID 1 MG TABLET PO SCH (09:15)
[2019-01-23] MEDS: amLODIPine BESYLATE 10 MG TABLET PO SCH (09:15)
[2019-01-23] MEDS: ALLOPURINOL 100 MG TABLET. PO SCH (09:15)
[2019-01-23] MEDS: MULTIVITAMIN with MINERAL TABLET. PO SCH (09:15)
[2019-01-23] MEDS: DULoxetine HCL 60 MG CAPSULE.DR PO SCH (09:17)
[2019-01-23 10:10] VITALS: BP 136/76
--- NOTE | 2019-01-23 13:08 | DS ---
DATE OF DISCHARGE: HOSPITAL COURSE: The patient is a 68-year-old female patient, who was admitted originally on 01/16/2019 with recurrent bouts of nausea, vomiting and generalized weakness. She was found to have acute on chronic kidney injury as well as urinary tract infection. She was started on IV fluid, IV ceftriaxone as well as alcohol withdrawal protocol and while in the hospital, she also complained of recurrent bouts of chest pain, for which she had 3 sets of cardiac enzymes that ruled out myocardial infarction. She had an echocardiogram, which showed that she has normal left ventricular systolic function. Her D-dimer was high and pulmonary perfusion ventilation scan was read as low probability. She did very well, has been up and about, able to ambulate without assistance or assistive device for short distances and with a walker. She continued to be somewhat weak and debilitated and therefore, a decision was made to discharge her to a [facility] facility to continue the process of rehabilitation there. PHYSICAL EXAMINATION: GENERAL: When I examined her this morning, she looked pale, but no jaundice, cyanosis, or thyromegaly. No jugular venous distension. No limb edema. VITAL SIGNS: Her heart rate was 75, blood pressure was 136/76, temperature was 97.9, respiratory rate was 20, and oxygen saturation was 98%. HEAD, EYES, EARS, NOSE AND THROAT: Showed normocephalic, atraumatic. NECK: Supple. HEART: Showed normal first and second heart sounds. No gallop or murmur. CHEST: Clear to auscultation. No crepitation or rhonchi. ABDOMEN: Distended, soft, nontender. NEUROLOGIC: She is definitely more awake, alert, responding appropriately. All cranial nerves intact. She moves extremities without difficulty. She ambulates with a walker. Her intake was 1200, output was 350. LABORATORY DATA: This morning, showed a white cell count 7000, hemoglobin 10, hematocrit 31, MCV 101, and platelet count 218,000. Her serum sodium 135, potassium 4.5, chloride 102, bicarbonate 25, anion gap of 8, BUN 8, creatinine 1.3, estimated GFR was 40 mL per minute. Her glucose was 78 and calcium was 8.7. Her urine culture has grown more than 100,000 colony forming units per mL of Escherichia coli sensitive to ceftriaxone. DISCHARGE MEDICATIONS: The patient was discharged to a [facility] facility to continue allopurinol 300 mg once a day, amlodipine 10 mg once a day, buspirone 15 mg twice a day, cholestyramine for Questran 4 grams p.o. daily for irritable bowel. She is on cyclobenzaprine 10 mg 3 times a day, escitalopram oxalate 20 mg daily, furosemide 20 mg once a day, levetiracetam 500 mg twice a day, Myrbetriq 50 mg daily, olanzapine 5 mg p.o. at bedtime as needed for insomnia and oxybutynin chloride for Ditropan XL 50 mg twice a day. FINAL DISCHARGE DIAGNOSES: 1. Recurrent bouts of nausea, vomiting and diarrhea with profound weakness mostly resolved. 2. Acute kidney injury, improved. Her creatinine is down to 1.4. 3. Hypertension, much better controlled. 4. Hyperlipidemia. 5. Generalized osteoarthritis. 6. Seizure disorder, for which she is on Keppra. 7. Recurrent episode of chest pains, which has 3 sets of cardiac enzymes that ruled out myocardial infarction and echocardiogram which showed that she has normal left ventricular systolic function with a normal ejection fraction of 60-65%. 8. She has elevated D-dimer and chest pain; however, her pulmonary perfusion ventilation scan was read as low probability. 9. Alcoholism, for which she is on alcohol withdrawal protocol. 10. Diarrhea, however, stool was negative for C. diff toxins. 11. Urinary tract infection with growth of Escherichia coli sensitive to cephalosporins. She is now on cefdinir. 12. Depression and she was seen by Dr. Samson who did not make any changes in her medication. The patient denied any suicidal ideation or planning to commit suicide. ESPERANZA OBREGON MD DR: RANJANA/jesika JOB#: [id number] / [id number]
--- NOTE | 2019-01-23 13:15 | NUR ---
tooling manager and dr jules here to discuss discharge plan. Patients plan is to discharge today to [facility] facility. Case management states she will discharge to [facility] at 3PM. IV removed this AM. Patient states that she is hopeful and knows that she needs to have rehab to get stronger. Scripts copied for chart and belongings in place.
[2019-01-23 14:30] VITALS: BP 144/84
--- NOTE | 2019-01-23 15:24 | NUR ---
Report given to Sonia at [facility] in [place] at this time, awaiting for transportation.
--- NOTE | 2019-01-23 16:26 | NUR ---
Patient ambulated off unit at this time via wheelchair with long-term staff. Belongings, discharge packet and medications left with staff member.
--- NOTE | 2019-01-24 13:48 | PN ---
DATE: 01/22/2019 This late entry of 01/22 covers elements not covered in my initial note. SUBJECTIVE: I met with the patient on the evening of 01/22. The patient has had some emesis and had an emesis bowl by her bedside. She states she had this again on 01/22 as she did on 01/21. Other than this, her mood has been better, little more interactive, verbal and animated, even with feeling sick as I met with her. REVIEW OF SYSTEMS: Positive for some tiredness and the above nausea. No CV, or pulmonary system symptoms on review. MENTAL STATUS EXAMINATION: The patient is reasonably oriented. Speech is coherent, abstraction fair, computation impaired, language function intact, attention span fair. Mood and affect is improved. We again had a lengthy discussion about staying away from alcohol. She verbalizes she intends to do this. LABORATORY DATA: Reviewed. IMPRESSION: Unchanged from initial note. PLAN: No change from initial note. DASHA GIBSON MD DR: DONNA/jesika JOB#: [id number] / [id number]
== END 2019-01-23 16:24 | DRG 682 ==
LOC: ER 20:08 → 1 SOUTH 01-16 00:46
PROVIDERS: ADMIT Internal Medicine; ATTEND Internal Medicine
DX: N17.9 Acute kidney failure, unspecified (principal); E43 Unspecified severe protein-calorie malnutrition; N39.0 Urinary tract infection, site not specified; F33.9 Major depressive disorder, recurrent, unspecified; R45.851 Suicidal ideations; N18.4 Chronic kidney disease, stage 4 (severe); F41.9 Anxiety disorder, unspecified; E87.6 Hypokalemia; I12.9 Hypertensive chronic kidney disease with stage 1 through stage 4 chronic kidney disease, or unspecified chronic kidney disease; E78.5 Hyperlipidemia, unspecified; M15.9 Polyosteoarthritis, unspecified; R19.7 Diarrhea, unspecified; R07.89 Other chest pain; E83.42 Hypomagnesemia; E16.2 Hypoglycemia, unspecified; B96.20 Unspecified Escherichia coli [E. coli] as the cause of diseases classified elsewhere; Z68.23 Body mass index [BMI] 23.0-23.9, adult; Z79.899 Other long term (current) drug therapy; F10.20 Alcohol dependence, uncomplicated; Y90.0 Blood alcohol level of less than 20 mg/100 ml; M10.9 Gout, unspecified; E03.9 Hypothyroidism, unspecified; E86.0 Dehydration; F12.90 Cannabis use, unspecified, uncomplicated; F17.200 Nicotine dependence, unspecified, uncomplicated; Z60.2 Problems related to living alone; G31.84 Mild cognitive impairment of uncertain or unknown etiology; G40.409 Other generalized epilepsy and epileptic syndromes, not intractable, without status epilepticus; K21.9 Gastro-esophageal reflux disease without esophagitis; Z82.49 Family history of ischemic heart disease and other diseases of the circulatory system; Z90.721 Acquired absence of ovaries, unilateral; Z90.710 Acquired absence of both cervix and uterus; Z88.8 Allergy status to other drugs, medicaments and biological substances; Z90.722 Acquired absence of ovaries, bilateral
CPT/HCPCS: 36415; 71045; 78580; 80048; 80053; 80061; 81001; 82550; 82947; 83605; 83735; 84484; 85025; 85027; 85379; 87086; 87186; 87493; 93005; 93306; 96361; 96365; 96374; 96375; 96376; A9540; A9558; J0696; J2060; J2405; J2765; J3475; J3490; P9612; Q0162; 97110; 97116; 97530; 97535; 99285-25; J7030

== ENCOUNTER 2020-04-25 16:25 | Emergency (ER) | payer MEDICARE, BC ==
[~2020-04-25] VITALS: Ht 165.1 cm; Wt 52.9 kg
[~2020-04-25 16:25] MED LIST changes: +AMLO-187 PO; -AMLO10TA8 PO; -MAGN400T3 PO; +MAGN400T5 PO; +MIRA50TA PO; +OXYB5TAB10 PO; -OXYB5TAB7 PO
[2020-04-25] MEDS ORDERED: IV DEXTROSE 5 %-0.45 % NACL 1,000 ML IV ONE (17:00)
--- NOTE | 2020-04-25 17:08 | EKG ---
[address] [address] Test Date: 2020-04-25 Test Time: 17:00:11 Pat Name: DIAN RAMOS Department: Room: Gender: F Touch Up Carver: LINO : 1950 Requested By: SAROJ HERRERA Order Number: [id number] Reading MD: Measurements Intervals [place] Rate: 67 P: 54 DE: 156 QRS: 5 QRSD: 74 T: 49 QT: 422 QTc: 449 Interpretive Statements SINUS RHYTHM NORMAL ECG RI6.02 No previous ECG available for comparison
--- NOTE | 2020-04-25 17:14 | PHYS DOC ---
Past History Past Medical History: Alcoholism, GERD, Hypertension, Seizure, Other Additional Past Medical Histor: poor bladder control-incontinent (SAROJ HERRERA DO) Past Surgical History: Hysterectomy (SAROJ HERRERA DO) Smoking: Quit Greater Than 1 Year Alcohol Use: Sober Drug Use: Marijuana, Opiates (SAROJ HERRERA DO) General Adult EDM: Chief Complaint: HYPOGLYCEMIA HPI: HPI: History obtained from patient. Patient is a 69-year-old female with history of alcohol abuse, seizures, hypertension who presents with a chief complaint of generalized weakness. States she felt generally weak throughout the day. States it is difficult for her to get up and walk. She states she thought she may have low blood sugar because this is happened once before. She called her brother who called an ambulance to have her transported to our facility. She also drinks 1 pint of whiskey daily. Denies any skin color changes. Denies any stool changes. Denies abdominal pain. States he has not been eating well for quite some time. States she lives at home alone. States she needs help with groceries. States she has no interested in being placed in a rehabilitation facility or extended care facility. Denies chest pain or shortness breath. Does not take any antihyperglycemia medication. Denies any recent seizures. No other complaints. (SAROJ HERRERA DO) Review of Systems: Review of Systems: Constitutional: Positive for generalized weakness Eyes: Denies change in visual acuity HENT: Denies nasal congestion or sore throat Respiratory: Denies cough or shortness of breath Cardiovascular: Denies chest pain or edema GI: Denies abdominal pain, nausea, vomiting, bloody stools or diarrhea : Denies dysuria Musculoskeletal: Denies back pain or joint pain Integument: Denies rash Neurologic: Denies headache, focal weakness or sensory changes Endocrine: Denies polyuria or polydipsia Lymphatic: Denies swollen glands Psychiatric: Denies depression or anxiety (SAROJ HERRERA DO) Current Medications: Current Meds: Current Medications Medications (Trade) Dose Ordered Sig/Onur Start Time Stop Time Status Last Admin Dose Admin Dextrose/Sodium Chloride 1,000 ml @ 100 mls/hr 1X ONCE 04/25/20 17:00 04/26/20 02:59 (SAROJ HERRERA DO) Allergies: Allergies: Allergies Coded Allergies Type Severity Reaction Last Updated Verified codeine Allergy Unknown 09/17/17 Yes (SAROJ HERRERA DO) Physical Exam: PE: Constitutional: Well developed, well nourished, no acute distress, non-toxic appearance. [] HENT: Normocephalic, atraumatic, bilateral external ears normal, oropharynx moist, no oral exudates, nose normal. [] Eyes: PERRLA, EOMI, conjunctiva normal, no discharge. [] Neck: Normal range of motion, no tenderness, supple, no stridor. [] Cardiovascular:Heart rate regular rhythm, no murmur [] Lungs & Thorax: Bilateral breath sounds clear to auscultation [] Abdomen: soft, no tenderness, no masses, no pulsatile masses. [] Skin: Warm, dry, no erythema, no rash. [] Back: No tenderness, no CVA tenderness. [] Extremities: No tenderness, no cyanosis, no clubbing, ROM intact, no edema. [] Skin: Scattered petechiae Neurologic: Alert and oriented X 3, normal motor function, normal sensory function, no focal deficits noted. [] Psychologic: Affect normal, judgement normal, mood normal. [] (SAROJ HERRERA DO) Current Patient Data: Labs: Laboratory Tests Test 04/25/20 17:07 White Blood Count 6.0 x10^3/uL Red Blood Count 3.65 x10^6/uL Hemoglobin 11.9 g/dL Hematocrit 36.8 % Mean Corpuscular Volume 101 fL Mean Corpuscular Hemoglobin 33 pg Mean Corpuscular Hemoglobin Concent 32 g/dL Red Cell Distribution Width 13.6 % Platelet Count 288 x10^3/uL Neutrophils (%) (Auto) 66 % Lymphocytes (%) (Auto) 25 % Monocytes (%) (Auto) 7 % Eosinophils (%) (Auto) 1 % Basophils (%) (Auto) 2 % Neutrophils # (Auto) 3.9 x10^3uL Lymphocytes # (Auto) 1.5 x10^3/uL Monocytes # (Auto) 0.4 x10^3/uL Eosinophils # (Auto) 0.1 x10^3/uL Basophils # (Auto) 0.1 x10^3/uL Platelet Estimate Pending Current Medications Medications (Trade) Dose Ordered Sig/Onur Route PRN Reason Start Time Stop Time Status Last Admin Dose Admin Dextrose/Sodium Chloride 1,000 ml @ 100 mls/hr 1X ONCE IV 04/25/20 17:00 04/26/20 02:59 Ondansetron HCl (Zofran) 4 mg STK-MED ONCE .ROUTE 04/25/20 17:17 04/25/20 17:18 DC Thiamine HCl (Thiamine Vial) 200 mg STK-MED ONCE IV 04/25/20 17:18 04/25/20 17:18 DC Morphine Sulfate (Morphine 4mg Syringe) 4 mg STK-MED ONCE .ROUTE 04/25/20 17:18 04/25/20 17:18 DC (SAROJ HERRERA DO) EKG: EKG: [] EKG consistent with normal sinus rhythm. Ventricular rate of 67 bpm. Slight left axis noted. Intervals normal. No acute ischemic changes noted. (SAROJ HERRERA DO) Radiology/Procedures: Radiology/Procedures: [] (SAROJ HERRERA DO) Heart Score: Risk Factors: Risk Factors: DM, Current or recent (<one month) smoker, HTN, HLP, family history of CAD, obesity. Risk Scores: Score 0 - 3: 2.5% MACE over next 6 weeks - Discharge Home Score 4 - 6: 20.3% MACE over next 6 weeks - Admit for Clinical Observation Score 7 - 10: 72.7% MACE over next 6 weeks - Early Invasive Strategies (SAROJ HERRERA DO) Course & Med Decision Making: Course & Med Decision Making Pertinent Labs and Imaging studies reviewed. (See chart for details) [] Patient is a 69-year-old female who presents with a chief complaint of hypoglycemia.. Approximate initial blood sugar 50. Upon arrival patient is alert and oriented x4. Shows no signs of somnolence. Patient was a difficult vascular access patient. Initially patient's blood sugar was corrected with juice. Given her history of alcohol abuse laboratory analysis is currently pending. I have signed out the patient's emergency department care to Dr. Nicole. We discussed the history, physical exam findings, completed and pending laboratory results and imaging studies. We have also discussed the current treatment plan and expected clinical course. Please refer to chart for the patient's remaining emergency department course, final disposition, and clinical impression(s). (SAROJ HERRERA DO) Course & Med Decision Making You must eat scheduled meals. Reduce your alcohol. Follow up your COVID. Review work up with Primary. Impression: 1. Hypoglycemia 2. Dehydration ( Bun/Crea 27/1.6 3. Anemia Hgb 11.9 4. Elevated AST/ALT 337/79 5. Hx. of Alcohol Abuse (RADHAMES RICE MD) Dragon Disclaimer: Dragon Disclaimer: This electronic medical record was generated, in whole or in part, using a voice recognition dictation system. (SAROJ HERRERA DO) Departure Departure: Impression: Primary Impression: Hypoglycemia Additional Impression: Alcohol dependence Qualified Codes: F10.29 - Alcohol dependence with unspecified alcohol- induced disorder Referrals: CHARLES PATE MD (PCP) Attending Signature Attending Signature I have participated in the care of this patient and I have reviewed and agree with all pertinent clinical information above including history, exam, and recommendations. (RADHAMES RICE MD) SAROJ HERRERA DO Apr 25, 2020 17:14 RADHAMES RICE MD Apr 25, 2020 19:55
[2020-04-25] MEDS ORDERED: ONDANSETRON PF 4 MG/2 ML VIAL. ONE (17:17)
[2020-04-25] MEDS ORDERED: THIAMINE 200 MG/2 ML VIAL. IV ONE (17:18)
[2020-04-25] MEDS ORDERED: MORPHINE SULFATE 4 MG/ML DISP.SYRIN. ONE ×2 (17:18→18:25)
[2020-04-25 17:24] LABS: BASO # 0.1 x10^3/uL (0.0-0.2); BASO % 2 % (0-3); EOS # 0.1 x10^3/uL (0.0-0.7); EOS % 1 % (0-3); HEMATOCRIT 36.8 % (36.0-47.0); HEMOGLOBIN 11.9 g/dL (12.0-15.5); LYMPH # 1.5 x10^3/uL (1.0-4.8); LYMPH % 25 % (24-48); MEAN CORPUSCULAR HEMOGLOBIN 33 pg (25-35); MEAN CORPUSCULAR HGB CONC 32 g/dL (31-37); MEAN CORPUSCULAR VOLUME 101 fL (79-100); MONO # 0.4 x10^3/uL (0.0-1.1); MONO % 7 % (0-9); NEUT # 3.9 x10^3uL (1.8-7.7); NEUT % 66 % (31-73); PLATELET COUNT 288 x10^3/uL (140-400); RED BLOOD COUNT 3.65 x10^6/uL (3.50-5.40); RED CELL DISTRIBUTION WIDTH 13.6 % (11.5-14.5)
[2020-04-25 18:14] LABS: CALCIUM 9.4 mg/dL (8.5-10.1); CREATININE 1.6 mg/dL (0.6-1.0); GFR 31.8; POTASSIUM 4.6 mmol/L (3.5-5.1)
[2020-04-25 18:20] LABS: ALBUMIN 3.7 g/dL (3.4-5.0); MAGNESIUM 2.3 mg/dL (1.8-2.4); TOTAL BILIRUBIN 0.3 mg/dL (0.2-1.0); TOTAL PROTEIN 7.5 g/dL (6.4-8.2)
[2020-04-25] MEDS ORDERED: MORPHINE SULFATE 4 MG/ML DISP.SYRIN. IV ONE ×2 (18:30→18:45)
[2020-04-25 18:32] LABS: % EOS 2 % (0-5); % LYMPHS 34 % (24-48); % MONOS 3 % (0-10); % SEGS 61 % (35-66); PLT ESTIMATE ADEQUATE (ADEQUATE)
[2020-04-25 19:35] LABS: BACTERIA,URINE MANY /HPF (0-FEW); BILIRUBIN,URINE NEG (NEG); CLARITY,URINE CLOUDY; COLOR,URINE YELLOW; GLUCOSE,URINE NEG (NEG); NITRITE,URINE NEG (NEG); RBC,URINE OCC /HPF (0-2); SQUAMOUS EPITHELIAL CELL,UR FEW /LPF; UROBILINOGEN,URINE 0.2 mg/dL (0.2 mg/dL); WBC,URINE OCC /HPF (0-4)
== END 2020-04-25 20:52 | disposition home or self-care (01) ==
LOC: ER 16:25
DX: E16.2 Hypoglycemia, unspecified (principal); F10.229 Alcohol dependence with intoxication, unspecified; R53.1 Weakness; K21.9 Gastro-esophageal reflux disease without esophagitis; I10 Essential (primary) hypertension; F12.90 Cannabis use, unspecified, uncomplicated; F19.90 Other psychoactive substance use, unspecified, uncomplicated; Z87.891 Personal history of nicotine dependence; Z90.710 Acquired absence of both cervix and uterus; Z88.5 Allergy status to narcotic agent; Z79.899 Other long term (current) drug therapy
CPT/HCPCS: 36415; 80053; 81001; 82947; 83690; 83735; 84484; 85007; 85025; 85610; 87077; 87086; 87186; 93005; 96365; 96366; 99284; G0480

== ENCOUNTER 2020-05-15 19:33 | Emergency (ER) | payer MEDICARE, BC ==
[~2020-05-15] VITALS: Ht 154.9 cm; Wt 54.0 kg
[~2020-05-15 19:33] MED LIST changes: -ESCI20TA2 PO; +ESCI20TA5 PO
--- NOTE | 2020-05-15 20:02 | PHYS DOC ---
Past History Past Medical History: Alcoholism, Anemia, Hypertension, Seizure Additional Past Medical Histor: poor bladder control-incontinent Past Surgical History: No Surgical History Smoking: Quit Greater Than 1 Year Alcohol Use: Heavy Drug Use: Marijuana, Opiates General Adult EDM: Chief Complaint: MECHANICAL FALL HPI: HPI: "l guess I had a fall or another seizure... I have not been taking my meds for seizures..and I just quit drinking again...".." I fall a lot anyway... " Patient is a 69 year old female who presents with above hx and complaints of fall and possible seizure.. Pt. has history of alcohol abuse and periodic episodes of sobriety. Patient has had periodic admissions for nausea vomiting generalized weakness secondary to her alcohol abuse. Patient has also had episodes of acute on chronic kidney kidney injury, urinary tract infections, myocardial dysrhythmias, previous cardiac echogram however showed normal left ventricular systolic function. Patient has on previous visits had elevated D- dimer felt to be secondary to falls. Patient does have a history of gait instability. Patient is on Keppra 500 mg twice a day however she has been noncompliant with his usage. Patient does rate she was recently nauseated did not take her meds. Patient has had periodic episodes of chronic diarrhea and cyclic vomiting. Patient has history of generalized osteoarthritis, hyperlipidemia, hypertension, acute on chronic kidney dysfunction, seizure disorder that is usually controlled if she takes her Keppra. Patient has had episodes of a urinary tract infections. Patient has been advised in the past to use a walker for ambulation because of her gait instability. Patient has been relatively noncompliant with this suggestion. The patient follows with Dr. Pate. Review of Systems: Review of Systems: Constitutional: Denies fever or chills Eyes: Denies change in visual acuity HENT: Denies nasal congestion or sore throat Respiratory: Denies cough or shortness of breath Cardiovascular: Denies chest pain or edema GI: History of nausea, vomiting, and diarrhea : Denies dysuria Musculoskeletal: Complains of contusions from frequent falls Integument: Denies rash Neurologic: Denies headache, focal weakness or sensory changes . History of seizure Endocrine: Denies polyuria or polydipsia Lymphatic: Denies swollen glands Psychiatric: Denies depression or anxiety Family History: Family History: Noncontributory to presentation Current Medications: Current Meds: See nursing for home meds Allergies: Allergies: Allergies Coded Allergies Type Severity Reaction Last Updated Verified codeine Allergy Unknown 09/17/17 Yes Physical Exam: PE: Constitutional: Patient appears malnourished. Somewhat pale in appearance no acute distress, non-toxic appearance. [] HENT: Normocephalic, atraumatic, bilateral external ears normal, oropharynx dry , no oral exudates, nose normal. No traumatic oral lesions Eyes: PERRLA, EOMI, conjunctiva normal, no discharge. [] Neck: Normal range of motion, mild upper neck tenderness, no midline tenderness, guarded movements, no stridor. [] Cardiovascular: Tachycardia heart rate regular rhythm, no murmur [] Lungs & Thorax: Bilateral breath sounds equal at apex with scattered wheezes on auscultation [] Abdomen: Bowel sounds hyperactive, soft, no tenderness, no masses, no pulsatile masses. Old surgery scars Skin: Warm, dry, no erythema, no rash. Poor turgor. Old or new contusions Back: No tenderness, no CVA tenderness. [] Extremities: No tenderness, no cyanosis, no clubbing, ROM intact, no edema. Multiple areas of different bony point contusions or bruises in various stages of healing. Arthritic changes. Neurologic: Alert and oriented X 3, moves all extremities on request, does have distal sensory,, no focal deficits noted. [] Psychologic: Affect somewhat flat affect judgement normal, mood depressed. EKG: EKG: My interpretation of EKG shows sinus rhythm ventricular rate of 83. No findings acute STEMI. No findings of acute morphology. Radiology/Procedures: Radiology/Procedures: [][address] [address] IMAGING REPORT Signed PATIENT: DIAN RAMOS ACCOUNT: [id number] : 1950 LOCATION: ER AGE: 69 SEX: F EXAM STATUS: PRE ER ORD. PHYSICIAN: RADHAMES RICE MD REASON: syncope, sz PROCEDURE: PORTABLE CHEST 1V EXAMINATION: XR CHEST 1V CLINICAL HISTORY: Syncope, seizure, fall EXAM DATE/TIME: 05/15/2020 8:31 PM COMPARISON: 01/17/2019 FINDINGS: Lines, Tubes, and Devices: None. Cardiomediastinal Silhouette: Normal heart size. Aortic atherosclerotic calcification. Lungs and Pleura: No evidence of focal airspace consolidation or pleural effusion. Pulmonary vasculature unremarkable. Bones and Soft Tissues: Mild dextroconvex curvature of the thoracic spine, possibly positional. IMPRESSION: No evidence of acute cardiopulmonary abnormality. Electronically signed by: Jaxon Purdy DO (05/15/2020 9:05 PM) [facility] DI[facility]ATED AND SIGNED BY: JAXON PURDY DO DATE: 05/15/202103 CC: RADHAMES RICE MD; CHARLES PATE MD ~MTH0 0 [facility] [address] [place] [id number] IMAGING REPORT Signed PATIENT: DIAN RAMOS ACCOUNT: [id number] : 1950 LOCATION: ER AGE: 69 SEX: F EXAM STATUS: PRE ER ORD. PHYSICIAN: RADHAMES RICE MD REASON: Seizure and fall, head injury PROCEDURE: CT HEAD AND CERVICAL SPINE WO EXAMINATION: CT HEAD AND C-SPINE WO CLINICAL HISTORY: Seizure and fall, head injury TECHNIQUE: Serial axial images without IV contrast were obtained from the vertex to the foramen magnum. CT of the cervical spine without IV contrast. Spiral, high resolution axial images were obtained from the skull base to the cervicothoracic junction with sagittal and coronal planar reconstructions. CT Dose Reduction Employed: One or more of the following individualized dose reduction techniques were utilized for this examination: 1. Automated exposure control 2. Adjustment of the mA and/or kV according to patient size 3. Use of iterative reconstruction technique. COMPARISON: CT head 01/08/2018 FINDINGS: BRAIN: Post-operative Change: None. Acute Change: No evidence of an acute contusion or other acute parenchymal process. Hemorrhage: No evidence of acute intracranial hemorrhage. Mass Lesion/Mass Effect: No evidence of intracranial mass or extraaxial fluid collection. No significant mass effect. Chronic Change: Scattered patchy foci of hypoattenuation in the supratentorial white matter, nonspecific but likely represents mild microvascular ischemia. Atherosclerotic calcification of the bilateral carotid siphons. Parenchyma: Moderate generalized volume loss. Parenchyma otherwise within normal limits for age. Ventricles: Asymmetric enlargement of the lateral and third ventricles, likely related to chronic volume loss and similar to prior study. Paranasal Sinuses and Skull Base: Visualized paranasal sinuses clear. No evidence of acute calvarial fracture. C-SPINE: Alignment: Straightening to slight reversal of the normal cervical lordosis, possibly positional. Osseous Structures: No evidence of acute fracture. Minimal C3-4 anterolisthesis, likely degenerative. No evidence of destructive osseous lesion. Degenerative Changes: Atlantodental degenerative changes. Multilevel marked degenerative disc disease, greatest at C5-6 and C6-7. Mild to moderate multilevel facet arthropathy and neural foraminal narrowing, greatest in the lower cervical spine. No evidence of significant osseous spinal stenosis. Cervical Soft Tissues: No prevertebral soft tissue swelling. IMPRESSION: No evidence of acute intracranial abnormality or significant interval change. No evidence of acute osseous abnormality involving the cervical spine. Marked cervical degenerative disc disease and mild to moderate neural foraminal narrowing. Electronically signed by: Jaxon Purdy DO (05/15/2020 9:03 PM) [facility] AND SIGNED BY: JAXON PURDY DO DATE: 05/15/202053 CC: RADHAMES RICE MD; CHARLES PATE MD ~MTH0 0 Heart Score: HEART Score for Chest Pain: HEART Score for Chest Pain Response (Comments) Value History Slighlty/Non-Suspicious 0 ECG Normal 0 Age > 65 2 Risk Factors 1 or 2 Risk Factors 1 Troponin < Normal Limit 0 Total 3 Risk Factors: Risk Factors: DM, Current or recent (<one month) smoker, HTN, HLP, family history of CAD, obesity. Risk Scores: Score 0 - 3: 2.5% MACE over next 6 weeks - Discharge Home Score 4 - 6: 20.3% MACE over next 6 weeks - Admit for Clinical Observation Score 7 - 10: 72.7% MACE over next 6 weeks - Early Invasive Strategies Course & Med Decision Making: Course & Med Decision Making Pertinent Labs and Imaging studies reviewed. (See chart for details) Pt. to resume Keppra 300 twice a day. Push fluids. Follow-up labs with primary care. Return if any concerns. Avoid alcohol use. Make sure that she wears a mask covering nose and mouth at all times when outside home. Return if any concerns. Have primary review labs. Take a daily multivitamin. Patient must push adequate fluids. Patient must use walker. Patient must follow-up with her primary care Dr. Pate. Patient had Dr. Pate review labs drawn here and x- rays. Encourage patient to continue her sobriety. Return if any concerns. Pt. discharged to care of brother. Pt. push fluidsl. Impression: 1. Falls 2. History of alcohol withdrawal seizures 3. Multiple contusions 4. Anemia hemoglobin 11.4 5. D-dimer 0.80 suspect related to multiple areas of contusions (no cording appreciated in legs no history of DVTs) 6. Dehydration Bun38/Crea 1.7 7. Gait disorder [] Dragon Disclaimer: Dragon Disclaimer: This electronic medical record was generated, in whole or in part, using a voice recognition dictation system. Departure Departure: Referrals: CHARLES PATE MD (PCP) Dragon Disclaimer This chart was dictated in whole or in part using Voice Recognition software in a busy, high-work load, and often noisy Emergency Department environment. It may contain unintended and wholly unrecognized errors or omissions. Dragon Disclaimer This chart was dictated in whole or in part using Voice Recognition software in a busy, high-work load, and often noisy Emergency Department environment. It may contain unintended and wholly unrecognized errors or omissions. Dragon Disclaimer This chart was dictated in whole or in part using Voice Recognition software in a busy, high-work load, and often noisy Emergency Department environment. It may contain unintended and wholly unrecognized errors or omissions. RADHAMES RICE MD May 15, 2020 20:02
[2020-05-15] MEDS ORDERED: IV RINGERS SOLUTION,LACTATED 1,000 ML IV SCH (20:15)
[2020-05-15] MEDS ORDERED: MVI, ADULT NO.4 WITH VIT K 10 ML, FOLIC ACID INJ 1 MG, THIAMINE INJ 100 MG in IV RINGER... IV ONE (20:15)
[2020-05-15] MEDS ORDERED: THIAMINE 200 MG/2 ML VIAL. IV ONE (20:31)
[2020-05-15 20:38] LABS: BASO # 0.1 x10^3/uL (0.0-0.2); BASO % 2 % (0-3); EOS # 0.2 x10^3/uL (0.0-0.7); EOS % 2 % (0-3); HEMATOCRIT 34.4 % (36.0-47.0); HEMOGLOBIN 11.4 g/dL (12.0-15.5); LYMPH # 1.7 x10^3/uL (1.0-4.8); LYMPH % 24 % (24-48); MEAN CORPUSCULAR HEMOGLOBIN 32 pg (25-35); MEAN CORPUSCULAR HGB CONC 33 g/dL (31-37); MEAN CORPUSCULAR VOLUME 96 fL (79-100); MONO # 0.4 x10^3/uL (0.0-1.1); MONO % 6 % (0-9); NEUT # 4.7 x10^3uL (1.8-7.7); NEUT % 66 % (31-73); PLATELET COUNT 226 x10^3/uL (140-400); RED BLOOD COUNT 3.58 x10^6/uL (3.50-5.40); RED CELL DISTRIBUTION WIDTH 13.9 % (11.5-14.5); WHITE BLOOD COUNT 7.1 x10^3/uL (4.0-11.0)
[2020-05-15 20:45] LABS: CALCIUM 9.4 mg/dL (8.5-10.1); CREATININE 1.7 mg/dL (0.6-1.0); GFR 29.6; POTASSIUM 4.5 mmol/L (3.5-5.1)
[2020-05-15 20:55] LABS: ALBUMIN 3.4 g/dL (3.4-5.0); DIRECT BILIRUBIN 0.2 mg/dL (0.0-0.2); MAGNESIUM 1.7 mg/dL (1.8-2.4); TOTAL BILIRUBIN 0.7 mg/dL (0.2-1.0); TOTAL PROTEIN 6.4 g/dL (6.4-8.2)
[2020-05-15] MEDS ORDERED: levETIRAcetam 500 MG TABLET PO SCH (21:00)
--- NOTE | 2020-05-15 21:06 | RAD ---
EXAMINATION: CT HEAD AND C-SPINE WO CLINICAL HISTORY: Seizure and fall, head injury TECHNIQUE: Serial axial images without IV contrast were obtained from the vertex to the foramen magnum. CT of the cervical spine without IV contrast. Spiral, high resolution axial images were obtained from the skull base to the cervicothoracic junction with sagittal and coronal planar reconstructions. CT Dose Reduction Employed: One or more of the following individualized dose reduction techniques wer e utilized for this examination: 1. Automated exposure control 2. Adjustment of the mA and/or kV ac cording to patient size 3. Use of iterative reconstruction technique. COMPARISON: CT head 01/08/2018 FINDINGS: BRAIN: Post-operative Change: None. Acute Change: No evidence of an acute contusion or other acute parenchymal process. Hemorrhage: No evidence of acute intracranial hemorrhage. Mass Lesion/Mass Effect: No evidence of intracranial mass or extraaxial fluid collection. No signific ant mass effect. Chronic Change: Scattered patchy foci of hypoattenuation in the supratentorial white matter, nonspeci fic but likely represents mild microvascular ischemia. Atherosclerotic calcification of the bilateral carotid siphons. Parenchyma: Moderate generalized volume loss. Parenchyma otherwise within normal limits for age. Ventricles: Asymmetric enlargement of the lateral and third ventricles, likely related to chronic vol ume loss and similar to prior study. Paranasal Sinuses and Skull Base: Visualized paranasal sinuses clear. No evidence of acute calvarial fracture. C-SPINE: Alignment: Straightening to slight reversal of the normal cervical lordosis, possibly positional. Osseous Structures: No evidence of acute fracture. Minimal C3-4 anterolisthesis, likely degenerative. No evidence of destructive osseous lesion. Degenerative Changes: Atlantodental degenerative changes. Multilevel marked degenerative disc disease , greatest at C5-6 and C6-7. Mild to moderate multilevel facet arthropathy and neural foraminal narro wing, greatest in the lower cervical spine. No evidence of significant osseous spinal stenosis. Cervical Soft Tissues: No prevertebral soft tissue swelling. IMPRESSION: No evidence of acute intracranial abnormality or significant interval change. No evidence of acute osseous abnormality involving the cervical spine. Marked cervical degenerative d isc disease and mild to moderate neural foraminal narrowing. Electronically signed by: Jaxon Pierre DO (05/15/2020 9:03 PM) [facility]
--- NOTE | 2020-05-15 21:07 | RAD ---
EXAMINATION: XR CHEST 1V CLINICAL HISTORY: Syncope, seizure, fall EXAM DATE/TIME: 05/15/2020 8:31 PM COMPARISON: 01/17/2019 FINDINGS: Lines, Tubes, and Devices: None. Cardiomediastinal Silhouette: Normal heart size. Aortic atherosclerotic calcification. Lungs and Pleura: No evidence of focal airspace consolidation or pleural effusion. Pulmonary vasculat ure unremarkable. Bones and Soft Tissues: Mild dextroconvex curvature of the thoracic spine, possibly positional. IMPRESSION: No evidence of acute cardiopulmonary abnormality. Electronically signed by: Jaxon Pierre DO (05/15/2020 9:05 PM) [facility]
[2020-05-15] MEDS ORDERED: THIAMINE INJ 100 MG in IV NORMAL SALINE 50ML 50 ML IV ONE (21:15)
[2020-05-16] MEDS ORDERED: IV RINGERS SOLUTION,LACTATED 1,000 ML IV ONE (02:00)
[2020-05-16 02:30] VITALS: BP 135/73
--- NOTE | 2020-05-16 06:22 | EKG ---
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
== END 2020-05-16 02:54 | disposition home or self-care (01) ==
LOC: ER 19:33
DX: T14.8XXA Other injury of unspecified body region, initial encounter (principal); E86.0 Dehydration; D64.9 Anemia, unspecified; R79.1 Abnormal coagulation profile; R26.9 Unspecified abnormalities of gait and mobility; E78.5 Hyperlipidemia, unspecified; I10 Essential (primary) hypertension; F10.20 Alcohol dependence, uncomplicated; F12.10 Cannabis abuse, uncomplicated; F11.10 Opioid abuse, uncomplicated; G40.909 Epilepsy, unspecified, not intractable, without status epilepticus; R29.6 Repeated falls; Z86.2 Personal history of diseases of the blood and blood-forming organs and certain disorders involving the immune mechanism; Z87.891 Personal history of nicotine dependence; Z79.899 Other long term (current) drug therapy; Z88.5 Allergy status to narcotic agent; Y90.0 Blood alcohol level of less than 20 mg/100 ml; W18.39XA Other fall on same level, initial encounter; Y93.89 Activity, other specified; Y92.89 Other specified places as the place of occurrence of the external cause; Y99.8 Other external cause status
CPT/HCPCS: 36415; 70450; 71045; 72125; 80048; 80076; 82550; 83690; 83735; 84443; 84484; 85025; 85379; 85610; 85730; 93005; 96361; 96365; 96375; 99285; G0480; J2060; J7120